=== PATIENT | male | born 1950 | race Caucasian/White ===

== ENCOUNTER → 2020-07-25 07:48 | Outpatient (BNVA) | payer OTHER, SELFPAY | PROVIDERS: Visit Provider Internal Medicine Endocrinology, Diabetes & Metabolism | DX: Z76.89 Persons encountering health services in other specified circumstances (principal) ==

== ENCOUNTER 2020-08-09 08:21 | Outpatient (REF) | payer OTHER, SELFPAY ==
[2020-08-09 09:50] LABS: MANUAL DIFF FLAG NO
[2020-08-09 10:17] LABS: Basophils Percent Auto 0.5 % (0-2); Eosinophils Absolute Auto 0.1 X10*3/uL (0.0-0.4); Eosinophils Percent Auto 2.3 % (0-4); Hemoglobin 13.5 g/dl (14.0-18.0); Imm Gran Abs Auto 0.01 X10*3/uL (0.00-0.03); Imm Gran Pct Auto 0.2 % (0.0-0.4); Lymphocytes Absolute Auto 1.5 X10*3/uL (1.2-4.9); Mean Corpuscular HGB Conc 32.1 g/dl (31.0-36.0); Mean Corpuscular Hemoglobin 26.4 pg (27.0-33.0); Mean Corpuscular Volume 82.2 fL (80-98); Mean Platelet Volume 11.3 fL (9.4-12.4); Monocytes Absolute Auto 0.6 X10*3/uL (0.1-1.2); Monocytes Percent Auto 9.6 % (2-11); Neutrophils Percent Auto 63.4 % (45-73); Platelet Count 267 X10*3/uL (160-400); Red Blood Count 5.11 X10*6/uL (4.60-5.80); Red Cell Distribution Width 12.5 % (11.0-16.0); White Blood Count 6.2 X10*3/uL (4.8-10.8)
[2020-08-09 10:21] LABS: Estimated Average Glucose 154 mg/dL
[2020-08-09 10:26] LABS: Glucose Urine UA NEG (NEG); Leukocyte Esterase Urine NEG (NEG); Nitrite Urine NEG (NEG); PH 6.5 (5.0-8.0); Specific Gravity - Urine 1.015 (1.005-1.025); Urine Blood NEG (NEG); Urine Ketones NEG (NEG); Urine Protein NEG (NEG-TRACE)
[2020-08-09 10:45] LABS: Alanine Aminotransferase 38 U/L (0-40); Albumin Level 4.4 g/dL (3.5-5.0); Alkaline Phosphatase 71 U/L (39-117); Anion Gap 13 (12-20); Aspartate Amino Transferase 23 U/L (5-37); Bilirubin Total 0.5 mg/dL (0.0-1.0); Blood Urea Nitrogen 12 mg/dL (9-16); Carbon Dioxide 29 mmol/L (22-29); Chloride 101 mmol/L (96-108); Cholesterol 149 mg/dL; Estimated Glomerular Filt Rate > 60; Glucose Fasting 147 mg/dL (60-99); HDL Cholesterol 36 mg/dL; LDL Cholesterol Calculated 76 mg/dl; Potassium 4.9 mmol/l (3.3-5.1); Sodium 138 mmol/L (135-145); Total Protein 7.2 g/dL (6.5-8.0); Triglycerides 186 mg/dL
[2020-08-09 10:50] LABS: Appearance Urine CLEAR; Color Urine YELLOW
[2020-08-09 10:57] LABS: RBC Urine 0 /HPF (0); Squamous Epithelial Cell Urine TRACE /LPF; WBC Urine 0 /HPF (0-4)
[2020-08-09 11:07] LABS: Creatinine Urine 190.25 mg/dL; Microalbum/Creatinine Ratio Ur 12.6 ug/mg cr
[2020-08-09 11:09] LABS: Free T4 (Free Thyroxine) 1.09 ng/dL (0.71-1.85); Thyroid Stimulating Hormone 0.98 mIU/mL (0.32-4.0); Vitamin D 25-OH Total 28.3 ng/mL (>30)
[2020-08-09 11:15] LABS: Vitamin B12 325 pg/mL (200-900)
[2020-08-10 09:22] LABS: LDL Cholesterol Direct 86 mg/dL (<100)
[2020-08-10 19:01] LABS: Calcium (PTHI) 9.4 mg/dL (8.6-10.3); PTHI 28 pg/mL (14-64)
== END 2020-08-09 08:22 | disposition home or self-care (01) ==
LOC: HO.LAB 08:21
PROVIDERS: Visit Provider Internal Medicine Endocrinology, Diabetes & Metabolism
DX: E11.9 Type 2 diabetes mellitus without complications (principal); Z86.39 Personal history of other endocrine, nutritional and metabolic disease; E55.9 Vitamin D deficiency, unspecified
CPT/HCPCS: 36415; 80053; 80061; 81001; 82043; 82306; 82607; 83036; 83721; 83970; 84439; 84443; 85025

== ENCOUNTER 2020-12-31 14:17 | Outpatient (REF) | payer OTHER, SELFPAY ==
--- NOTE | ~2020-12-31 | XR_ITS ---
EXAMINATION: XR SHOULDER, RIGHT CLINICAL INFORMATION: Pain COMPARISON: Previous x-ray May 2014 TECHNIQUE: AP external rotation, Grashey, scapular Y, and axillary views of the right shoulder. FINDINGS: Bone alignment is normal. No fracture or dislocation is seen. The glenohumeral joint is normal. There is a arthritis at the acromioclavicular joint with joint space narrowing, osteophyte formation. Articular soft tissue ossifications. There is a periarticular ossification versus undersurface acromial osteophyte adjacent adjacent to the acromion. Soft tissues are otherwise unremarkable. XR/XR shoulder RT min 2V IMPRESSION: Arthritis at the acromioclavicular joint and periarticular soft tissue ossifications. Findings are similar to 2014 exam.
== END 2020-12-31 14:18 | disposition home or self-care (01) ==
LOC: HO.XRAY 14:17
PROVIDERS: PCP Internal Medicine; Visit Provider Internal Medicine
DX: M25.511 Pain in right shoulder (principal)
CPT/HCPCS: 73030

== ENCOUNTER → 2021-01-14 09:26 | Outpatient (BNVA) | payer OTHER, SELFPAY | PROVIDERS: PCP Internal Medicine; Visit Provider Orthopaedic Surgery | DX: M75.101 Unspecified rotator cuff tear or rupture of right shoulder, not specified as traumatic (principal) | CPT/HCPCS: 20610; J1100 ==

== ENCOUNTER 2021-02-20 16:00 | Outpatient (RCR) | payer OTHER, SELFPAY ==
--- NOTE | 2021-01-30 16:59 | MHC.PT.EP ---
[facility] [place] Office [place] Office [place] Office [address] Ingrid Johnson [address] [phone] F: [phone] F: [phone] F: [phone] F: [phone] Physical Therapy Plan of Care Date of Evaluation: Date of Surgery: Diagnosis: Unspecified RCT or rupture of R shoulder, nontraumatic Assessment: 70 y/o male referred to PT with R RTC tear rupture. S/s consistent with impingement and AC joint dysfunction resulting in pain and difficulty with reaching overhead, flipping his shirt collar, reaching behind his back, and sleeping. He enjoys swimming, biking, weight-lifting and would like to reach overhead again without pain. Examination shows decreased R shoulder A/PROM, limited cervical AROM but did not reproduce sx, decreased scapular and RTC strength, decreased pec/lat tissue mobility, and impaired postural awareness. Recommend PT 2x/week for 5 weeks to address impairments, implement HEP, and optimize functional mobility. Frequency and Duration: The patient will be seen 2x/week for 5 weeks Short Term Goals: 3 weeks 1. I with HEP 2. Improve R shoulder AROM by 10 degrees Usp Goals: 5 weeks 1. I with HEP and self management of sx 2. Pt will be able to flip down his shirt collar with R UE and pain < 3/10 3. Pt will be able to reach into overhead cabinet without shrug and pain < 3/10 Treatment Plan: Modalities to reduce pain, spasms and effusion. Manual therapy to restore motion and function. Therapeutic exercise to improve strength and flexibility. Neuromuscular re-education for posture and balance. Therapeutic activities to return to functional activities of daily living. Electronically signed by: Reema Huitron PT Please sign and return to therapist. Thank you for your referral.
--- NOTE | 2021-03-06 15:41 | MHC.PT.DC ---
[facility] [place] Office [place] Office [place] Office [address] Ingrid Johnson [address] [phone] F: [phone] F: [phone] F: [phone] F: [phone] Physical Therapy Discharge Report Diagnosis: Unspecified RCT or rupture of R shoulder, nontraumatic Date of Surgery: Date of Evaluation: 01/30/21 Date of Discharge: 03/06/21 Treatments to Date: 3 Cancellations to Date: 0 No Shows to Date: 0 Discharge Status: Improved Function Independent with HEP Patient Elected to Stop Discharge Summary: Pt called to self discharge stating he has been feeling better and I with HEP. Electronically signed by: Reema Huitron PT Please sign and return to therapist. Thank you for your referral.
== END 2021-03-06 15:41 | disposition home or self-care (01) ==
LOC: HO.PT 16:00
PROVIDERS: PCP Internal Medicine; Visit Provider Orthopaedic Surgery
DX: M75.101 Unspecified rotator cuff tear or rupture of right shoulder, not specified as traumatic (principal)
CPT/HCPCS: 97110; 97161

== ENCOUNTER 2021-03-20 12:55 | Outpatient (REF) | payer OTHER, SELFPAY ==
[2021-03-20 14:19] LABS: MANUAL DIFF FLAG NO
[2021-03-20 14:28] LABS: Basophils Percent Auto 0.6 % (0-2); Eosinophils Absolute Auto 0.1 X10*3/uL (0.0-0.4); Eosinophils Percent Auto 1.8 % (0-4); Hematocrit 42.4 % (42-52); Hemoglobin 13.8 g/dl (14.0-18.0); Imm Gran Abs Auto 0.02 X10*3/uL (0.00-0.03); Imm Gran Pct Auto 0.3 % (0.0-0.4); Immature Retic Fraction 8.9 % (2.3-13.4); Lymphocytes Absolute Auto 1.8 X10*3/uL (1.2-4.9); Mean Corpuscular HGB Conc 32.5 g/dl (31.0-36.0); Mean Corpuscular Hemoglobin 26.5 pg (27.0-33.0); Mean Corpuscular Volume 81.5 fL (80-98); Mean Platelet Volume 11.3 fL (9.4-12.4); Monocytes Absolute Auto 0.7 X10*3/uL (0.1-1.2); Monocytes Percent Auto 9.6 % (2-11); Neutrophils Absolute Auto 4.2 X10*3/uL (2.0-8.3); Neutrophils Percent Auto 61.7 % (45-73); Platelet Count 287 X10*3/uL (160-400); Red Cell Distribution Width 12.7 % (11.0-16.0); Retic HGB Equivalent 30.2 pg (30.0-35.0); Reticulocyte Percent 1.4 % (0.5-1.8); Reticulocytes Absolute 0.071 X10*6/uL (0.026-0.095); White Blood Count 6.8 X10*3/uL (4.8-10.8)
[2021-03-20 14:44] LABS: Alanine Aminotransferase 35 U/L (0-40); Albumin Level 4.8 g/dL (3.5-5.0); Alkaline Phosphatase 69 U/L (39-117); Anion Gap 12 (12-20); Aspartate Amino Transferase 21 U/L (5-37); Bilirubin Total 0.3 mg/dL (0.0-1.0); Blood Urea Nitrogen 12 mg/dL (9-16); Calcium 9.8 mg/dL (8.4-10.2); Carbon Dioxide 29 mmol/L (22-29); Chloride 102 mmol/L (96-108); Cholesterol 166 mg/dL; Estimated Glomerular Filt Rate > 60; Glucose Random 130 mg/dL (60-115); HDL Cholesterol 38 mg/dL; Iron 94 mcg/dL (45-160); LDL Cholesterol Calculated 78 mg/dl; Percent Iron Saturation 23 % (15-50); Sodium 138 mmol/L (135-145); Total Iron Binding Capacity 409 mcg/dL (228-428); Total Protein 7.5 g/dL (6.5-8.0); Triglycerides 250 mg/dL; Unsaturated Iron Binding 315 ug/dL
[2021-03-20 15:06] LABS: Creatinine Urine 185.48 mg/dL; Ferritin 31 ng/mL (20-250); Free T4 (Free Thyroxine) 0.96 ng/dL (0.71-1.85); Microalbum/Creatinine Ratio Ur 14.5 ug/mg cr; Thyroid Stimulating Hormone 0.72 uIU/mL (0.32-4.0); Vitamin D 25-OH Total 38.5 ng/mL (>30)
[2021-03-20 15:21] LABS: Folate 14.1 ng/mL (> or = 4.0); Vitamin B12 221 pg/mL (200-900)
[2021-03-21 06:31] LABS: LDL Cholesterol Direct 99 mg/dL (<100)
[2021-03-21 17:31] LABS: Calcium (PTHI) 10.2 mg/dL (8.6-10.3); PTHI 27 pg/mL (14-64)
== END 2021-03-20 12:56 | disposition home or self-care (01) ==
LOC: HO.LAB 12:55
PROVIDERS: PCP Internal Medicine; Visit Provider Internal Medicine Endocrinology, Diabetes & Metabolism
DX: E11.40 Type 2 diabetes mellitus with diabetic neuropathy, unspecified (principal); E03.9 Hypothyroidism, unspecified; E78.00 Pure hypercholesterolemia, unspecified; E78.5 Hyperlipidemia, unspecified; E55.9 Vitamin D deficiency, unspecified; I10 Essential (primary) hypertension; Z86.39 Personal history of other endocrine, nutritional and metabolic disease; Z79.84 Long term (current) use of oral hypoglycemic drugs; Z79.899 Other long term (current) drug therapy
CPT/HCPCS: 36415; 80053; 80061; 82043; 82306; 82607; 82728; 82746; 82947; 83540; 83721; 83970; 84439; 84443; 85025; 85045

== ENCOUNTER 2021-05-13 09:40 | Outpatient (REF) | payer OTHER, SELFPAY ==
[2021-05-13 10:43] LABS: Alanine Aminotransferase 25 U/L (0-40); Albumin Level 4.5 g/dL (3.5-5.0); Alkaline Phosphatase 72 U/L (39-117); Anion Gap 13 (12-20); Aspartate Amino Transferase 15 U/L (5-37); Bilirubin Total 0.5 mg/dL (0.0-1.0); Blood Urea Nitrogen 14 mg/dL (9-16); Calcium 9.6 mg/dL (8.4-10.2); Carbon Dioxide 28 mmol/L (22-29); Chloride 105 mmol/L (96-108); Cholesterol 160 mg/dL; Estimated Glomerular Filt Rate > 60; Glucose Random 169 mg/dL (60-115); HDL Cholesterol 33 mg/dL; LDL Cholesterol Calculated 97 mg/dl; Potassium 4.6 mmol/L (3.3-5.1); Sodium 141 mmol/L (135-145); Total Protein 7.4 g/dL (6.5-8.0); Triglycerides 151 mg/dL
[2021-05-13 10:57] LABS: Free T4 (Free Thyroxine) 1.05 ng/dL (0.71-1.85); Thyroid Stimulating Hormone 0.96 uIU/mL (0.32-4.0)
[2021-05-13 11:08] LABS: Vitamin B12 1405 pg/mL (200-900)
[2021-05-17 11:41] LABS: Testosterone, Total 280 ng/dL (250-1100)
== END 2021-05-13 09:41 | disposition home or self-care (01) ==
LOC: HO.LAB 09:40
PROVIDERS: Internal Medicine Endocrinology, Diabetes & Metabolism; PCP Internal Medicine; Visit Provider Internal Medicine
DX: E11.65 Type 2 diabetes mellitus with hyperglycemia (principal); E55.9 Vitamin D deficiency, unspecified; Z86.39 Personal history of other endocrine, nutritional and metabolic disease
CPT/HCPCS: 36415; 80053; 80061; 82607; 84403; 84439; 84443

== ENCOUNTER 2021-05-27 09:49 | Outpatient (REF) | payer OTHER, SELFPAY ==
[2021-05-27 11:05] LABS: Glucose Urine UA NEG (NEG); Leukocyte Esterase Urine NEG (NEG); Nitrite Urine NEG (NEG); Urine Blood NEG (NEG); Urine Ketones NEG (NEG); Urine Protein NEG (NEG-TRACE)
[2021-05-27 11:13] LABS: Appearance Urine CLEAR; Color Urine YELLOW
[2021-05-27 11:28] LABS: RBC Urine 0-2 /HPF (0); Squamous Epithelial Cell Urine TRACE /LPF; WBC Urine 0 /HPF (0-4)
== END 2021-05-27 09:50 | disposition home or self-care (01) ==
LOC: HO.LAB 09:49
PROVIDERS: PCP Internal Medicine; Visit Provider Internal Medicine
DX: R35.0 Frequency of micturition (principal)
CPT/HCPCS: 81001

== ENCOUNTER 2021-06-06 14:52 | Outpatient (REF) | payer OTHER, SELFPAY ==
--- NOTE | ~2021-06-06 | US_ITS ---
EXAMINATION: US PELVIS LIMITED (BLADDER) CLINICAL INFORMATION: Frequency of micturition. COMPARISON: CT abdomen without intravenous contrast dated 09/26/2008. TECHNIQUE: Real-time imaging of the bladder. FINDINGS: BLADDER: The bladder wall is slightly thickened and trabeculated. No stone or mass is seen. Bilateral ureteral jets are demonstrated. Prevoid bladder volume is 172.0 mL. Postvoid bladder volume is 28.4 mL. The prostate gland is enlarged and protrudes into the base of the bladder. Prostate gland measures 4.9 x 4.2 x 4.8 cm. Prostate volume is 53.5 mL. US/US bladder IMPRESSION: Slightly thickened trabeculated bladder wall. Enlarged prostate gland that protrudes into the base of the bladder. No significant postvoid bladder residual..
== END 2021-06-06 14:53 | disposition home or self-care (01) ==
LOC: HO.US 14:52
PROVIDERS: PCP Internal Medicine; Visit Provider Internal Medicine
DX: R35.0 Frequency of micturition (principal)
CPT/HCPCS: 76857

== ENCOUNTER 2021-09-18 06:54 | Day surgery (SDC) | payer OTHER, SELFPAY ==
[2021-09-12 11:05] VITALS: BMI 31.7
--- NOTE | 2021-09-17 11:49 | P.CONAN_ITS ---
Documented by User: Katerine Logan NP 09/17/21 11:56 HPI - Anesthesia Eval Consult details Narrative: 71yo M for Upper Endoscopy and Colonoscopy [facility] Active Problems Active Problems: All Active Problems (Updated 09/12/21 @ 10:45 by Sanjuana Ray, RN) Impacted cerumen of both ears (Acute) Diabetic neuropathy (Acute) Right shoulder pain (Acute) Tinnitus (Acute) Type 2 diabetes mellitus with hyperglycemia (Acute) Vitamin B 12 deficiency (Acute) Colon cancer screening (Acute) Frequency of micturition (Acute) Obstructive sleep apnea (Acute) Painful arc syndrome of right shoulder (Acute) Obesity (BMI 30-39.9) (Acute) Anxiety (Acute) GERD (gastroesophageal reflux disease) (Acute) Hypothyroidism (Acute) Vitamin D deficiency (Acute) Diabetic neuropathy associated with type 2 diabetes mellitus (Acute) Hypertension (Acute) Dyslipidemia (Acute) History of hyperparathyroidism (Acute) Diabetes type 2, controlled (Acute) Past Medical History Medical History (Updated 09/12/21 @ 10:45 by Sanjuana Ray RN) Anxiety Burn Diabetes type 2, controlled Diabetic neuropathy associated with type 2 diabetes mellitus Dyslipidemia GERD (gastroesophageal reflux disease) History of hyperparathyroidism Hypertension Hypothyroidism Obesity (BMI 30-39.9) Painful arc syndrome of right shoulder Vitamin D deficiency Family History Family History Father No problems noted. Mother Diabetes Surgical History Surgical History (Updated 09/12/21 @ 11:12 by Sanjuana Ray RN) History of ankle surgery History of parathyroidectomy Hx of colonoscopy Hx of skin graft Hx of umbilical hernia repair Social History Social History (Updated 03/20/21 @ 13:08 by Rose Marie Knight LPN) Housing: House Are you a primary animal daycare provider to a significant other at home: No Do you presently have visiting nurse or other home services: No Alcohol intake: never Patient Tobacco Use Status: Never used Tobacco Second Hand Smoke Exposure: No Have you been hit, kicked, punched, or otherwise hurt by someone within the past year? If so, by whom?: No Are you DNR?: No Advance Directives: No Advance Directives Information Provided: Yes Advance Directives on File: No Recently lost weight without trying: No service: Yes Current occupational status: retired Meds Allergies Allergy/AdvReac Type Severity Reaction Status Date / Time latex Allergy skin Verified 09/12/21 11:04 irritation, from CPAP mask Home Medications Medication Instructions Recorded Confirmed Last Taken Type alpha lipoic acid 600 mg tablet 600 mg PO DAILY 07/25/20 09/12/21 Unknown History ibuprofen 200 mg tablet (Advil) 200 mg PO Q6H PRN 12/31/20 09/12/21 Unknown History Exam Exam Date and Time: September 17, 2021 1149 Height,Weight and Vital Signs: Height 6 ft Weight 106.141 kg Pertinent Lab Results Pertinent Lab Results: Laboratory Tests 03/20/21 05/13/21 13:45 09:45 WBC 6.8 Hgb 13.8 L Hct 42.4 Plt Count 287 Sodium 141 Potassium 4.6 Chloride 105 Carbon Dioxide 28 BUN 14 Creatinine 0.96 Assessment and Plan Assessment Anesthesia Assessment: Chart Reviewed Documented by User: Zana Max 09/18/21 07:36 PMFSH Past Medical History Medical History (Updated 09/12/21 @ 10:45 by Sanjuana Ray RN) Anxiety Burn Diabetes type 2, controlled Diabetic neuropathy associated with type 2 diabetes mellitus Dyslipidemia GERD (gastroesophageal reflux disease) History of hyperparathyroidism Hypertension Hypothyroidism Obesity (BMI 30-39.9) Painful arc syndrome of right shoulder Vitamin D deficiency Family History Family History Father No problems noted. Mother Diabetes Family history of problems with anesthesia: No Surgical History Surgical History (Updated 09/12/21 @ 11:12 by Sanjuana Ray RN) History of ankle surgery History of parathyroidectomy Hx of colonoscopy Hx of skin graft Hx of umbilical hernia repair History of Problems with Anesthesia: No Social History Social History (Updated 03/20/21 @ 13:08 by Rose Marie Knight LPN) Housing: House Are you a primary animal daycare provider to a significant other at home: No Do you presently have visiting nurse or other home services: No Alcohol intake: never Patient Tobacco Use Status: Never used Tobacco Second Hand Smoke Exposure: No Have you been hit, kicked, punched, or otherwise hurt by someone within the past year? If so, by whom?: No Are you DNR?: No Advance Directives: No Advance Directives Information Provided: Yes Advance Directives on File: No Recently lost weight without trying: No service: Yes Current occupational status: retired Meds Allergies Allergy/AdvReac Type Severity Reaction Status Date / Time latex Allergy skin Verified 09/12/21 11:04 irritation, from CPAP mask Home Medications Medication Instructions Recorded Confirmed Last Taken Type alpha lipoic acid 600 mg tablet 600 mg PO DAILY 07/25/20 09/12/21 Unknown History ibuprofen 200 mg tablet (Advil) 200 mg PO Q6H PRN 12/31/20 09/12/21 Unknown History Exam Airway Mallampati Class: III TM Dist: >3cm Neck ROM: Full Denture: Upper and Lower Loose/Missing/Broken Teeth: Yes Heart: rrr Lungs: bl breath sounds Assessment and Plan Final Anesthetic Review Family History of Problems with Anesthesia: No History of Problems with Anesthesia: No NPO: Yes ASA Class: II Final Preanesthetic Review: Meds/Allgs Chart Reviewed and Anes Risks/Benef Reviewed Patient Risk: Intermediate Procedure Risk: Intermediate Anesthetic Plan Anesthetic Plan: MAC: Disposition: Standard PACU
[2021-09-18 07:02] VITALS: BP 135/74; PULSE 72; RESP 18; TEMP 36.1; O2SAT 98
[2021-09-18 07:20] LABS: Glucose, Whole Blood 145 mg/dL (60-115)
[2021-09-18] MEDS: Lactated Ringers 1,000 ML 100 ML IVCONT (07:27)
[2021-09-18 09:28] VITALS: BP 119/76; PULSE 66; RESP 16; TEMP 36.3; O2SAT 97
--- NOTE | 2021-09-18 09:30 | P.BOP_ITS ---
Brief Operative Note Date of Service: 09/18/21 Post-op diagnosis: other (Hiatal hernia, Colon polyp) Procedure: EGD with biopsies, Colonoscopy to the cecum with hot snare polypectomy Surgeon: Edison Gillis Anesthesia: MAC Was an Cyber Threat Analyst used for this Procedure?: No Estimated blood loss (mL): 2.0 Pathology: other (A. EG Junction at 39cm B. Ascending colon polyp) Condition: stable Disposition: PACU
[2021-09-18 09:43] VITALS: BP 122/73; PULSE 66; RESP 16; TEMP 36.3; O2SAT 97
--- NOTE | 2021-09-18 09:53 | OP_ITS ---
SURGEON: Edison Gillis MD INDICATIONS: The patient presents for evaluation of gastroesophageal reflux, personal history of tubular adenoma of the colon, and colorectal cancer screening. Full consent obtained from him for this, including risks of bleeding and perforation. PREOPERATIVE DIAGNOSIS: POSTOPERATIVE DIAGNOSIS: PROCEDURE PERFORMED: Esophagogastroduodenoscopy with biopsies, and colonoscopy to cecum with snare polypectomy. ESTIMATED BLOOD LOSS: COMPLICATIONS: ANESTHESIA: Medication used, monitored anesthesia care. ASSISTANTS: SPECIMENS: PREOPERATIVE DIAGNOSES: Gastroesophageal reflux, personal history of tubular adenoma of the colon, colorectal cancer screening. POSTOPERATIVE DIAGNOSES: Gastroesophageal reflux, personal history of tubular adenoma of the colon, colorectal cancer screening, small hiatal hernia, colon polyp, diverticulosis, and internal hemorrhoids. DESCRIPTION OF PROCEDURE: The patient was placed in the left lateral decubitus position. The Olympus video gastroscope was passed into the posterior oropharynx and upper esophagus under direct vision. The scope was passed slowly into the distal esophagus. The gastroesophageal junction appeared at 39 cm. There was a very slight irregularity consistent with reflux. There was no evidence of any esophagitis nor any definitive [place]'s mucosa. There was a small hiatal hernia. The scope was advanced to pylorus and duodenum was cannulated to the descending portion. The duodenum including the bulb appeared normal without mass or ulceration. The scope was withdrawn back to the stomach. The gastric antrum and body appeared normal with good peristalsis. Scope was retroflexed visualizing the proximal stomach carefully, which appeared normal, without any sign of mass or ulceration. The scope was straightened and withdrawn back into the esophagus. Biopsies were obtained at the EG junction at 39 cm. Proximal to that the esophageal mucosa appeared normal. The scope was withdrawn from the patient. He was turned around for the colonoscopy. The digital rectal exam revealed no abnormalities. The Olympus video pediatric colonoscope was entered into the rectum and advanced to the cecum with the assistance of abdominal wall pressure. Once in the cecum, I did identify normal-appearing cecal pouch with appendiceal orifice and a normal-appearing ileocecal valve. The entire cecum and ileocecal valve appeared normal. There was transillumination of light deep in the right lower quadrant. The scope was slowly withdrawn assessing all mucosal surfaces carefully. Preparation was excellent. In the ascending colon, was an approximately 10 to 12 mm relatively flat polypoid area on a fold, which was snared and recovered by suction. The polypectomy site appeared clean, without any sign of residual polyp nor bleeding. I did not visualize any other polyps, colitis, or angiodysplasia. There was a moderate amount of sigmoid diverticulosis. In the rectum, scope was retroflexed visualizing internal hemorrhoids, but no other pathology. The rectal mucosa appeared normal. The scope was straightened and withdrawn from the patient. He tolerated both procedures well, and was returned to the recovery area in stable condition. IMPRESSION: 1. Colon polyp, status post snare polypectomy. 2. Diverticulosis. 3. Internal hemorrhoids. 4. Hiatal hernia, gastroesophageal reflux. PLAN: The results of the biopsies will be checked. If the polyp is a tubular adenoma, I would recommend a followup colonoscopy in 3 years. If it is a serrated polyp, I would recommend a repeat colonoscopy in 1 year. If it is only hyperplastic tissue, I would recommend a repeat colonoscopy in 10 years. He was advised to continue his pantoprazole for relief of his reflux. He was advised not to use any aspirin and NSAIDs for 1 week. MD LEONID Gleason/ALIRIO / [id number]
== END 2021-09-18 10:14 | disposition home or self-care (01) ==
PROVIDERS: PCP Internal Medicine; Visit Provider Internal Medicine
PROC: (CPT 45385; principal; 2021-09-18 08:10)
DX: Z12.11 Encounter for screening for malignant neoplasm of colon (principal); Z86.010 Personal history of colon polyps; D12.2 Benign neoplasm of ascending colon; K57.30 Diverticulosis of large intestine without perforation or abscess without bleeding; K64.8 Other hemorrhoids; K21.9 Gastro-esophageal reflux disease without esophagitis; K44.9 Diaphragmatic hernia without obstruction or gangrene; I10 Essential (primary) hypertension; E11.40 Type 2 diabetes mellitus with diabetic neuropathy, unspecified; Z79.84 Long term (current) use of oral hypoglycemic drugs; Z79.899 Other long term (current) drug therapy
CPT/HCPCS: 45385; 43239; 82947; 88305

== ENCOUNTER 2022-04-15 06:04 | Outpatient (REF) | payer OTHER, SELFPAY ==
--- NOTE | ~2022-04-15 | XR_ITS ---
EXAMINATION: XR KNEE, LEFT CLINICAL INFORMATION: Bursitis of the knee. COMPARISON: None TECHNIQUE: Two views of the left knee. FINDINGS: There is loss of tricompartment joint space with mild superior inferior patellar spurring. No visible acute fracture or dislocation seen. There are mild enthesophytes along the lateral intercondylar eminence. No suprapatellar joint effusion seen. XR/XR knee LT 2V IMPRESSION: Mild degenerative spurring along the superior and inferior patella and medial intercondylar eminence. No acute fracture or dislocation seen.
[2022-04-15 06:14] LABS: MANUAL DIFF FLAG NO
[2022-04-15 07:52] LABS: Basophils Percent Auto 0.6 % (0-2); Eosinophils Absolute Auto 0.2 X10*3/uL (0.0-0.4); Eosinophils Percent Auto 2.7 % (0-4); Imm Gran Abs Auto 0.03 X10*3/uL (0.00-0.03); Imm Gran Pct Auto 0.5 % (0.0-0.4); Lymphocytes Absolute Auto 1.8 X10*3/uL (1.2-4.9); Lymphocytes Percent Auto 26.3 % (20-40); Mean Corpuscular HGB Conc 32.5 g/dl (31.0-36.0); Mean Corpuscular Hemoglobin 26.9 pg (27.0-33.0); Mean Corpuscular Volume 82.6 fL (80.0-98.0); Mean Platelet Volume 11.4 fL (9.4-12.4); Monocytes Absolute Auto 0.6 X10*3/uL (0.1-1.2); Monocytes Percent Auto 9.6 % (2-11); Neutrophils Percent Auto 60.3 % (45-73); Platelet Count 253 X10*3/uL (160-400); Red Blood Count 4.84 X10*6/uL (4.60-5.80); White Blood Count 6.7 X10*3/uL (4.8-10.8)
[2022-04-15 08:01] LABS: Estimated Average Glucose 143 mg/dL; Hemoglobin A1c % 6.6 %
[2022-04-15 08:18] LABS: Alanine Aminotransferase 37 U/L (0-40); Albumin Level 4.6 g/dL (3.5-5.0); Alkaline Phosphatase 62 U/L (39-117); Anion Gap 13 (12-20); Aspartate Amino Transferase 22 U/L (5-37); Bilirubin Total 0.4 mg/dL (0.0-1.0); Blood Urea Nitrogen 15 mg/dL (9-16); Calcium 9.5 mg/dL (8.4-10.2); Carbon Dioxide 28 mmol/L (22-29); Chloride 103 mmol/L (96-108); Cholesterol 144 mg/dL; Estimated Glomerular Filt Rate > 60; Glucose Random 132 mg/dL (60-115); HDL Cholesterol 36 mg/dL; LDL Cholesterol Calculated 63 mg/dl; Potassium 4.8 mmol/L (3.3-5.1); Sodium 139 mmol/L (135-145); Total Protein 7.2 g/dL (6.5-8.0); Triglycerides 225 mg/dL
[2022-04-15 08:40] LABS: Thyroid Stimulating Hormone 2.78 uIU/mL (0.32-4.0)
[2022-04-15 09:48] LABS: Folate 18.1 ng/mL (> or = 4.0); Vitamin B12 > 2000 pg/mL (200-900)
[2022-04-15 10:05] LABS: Creatinine Urine 111.66 mg/dL; Microalbum/Creatinine Ratio Ur 10.7 ug/mg cr
== END 2022-04-15 06:05 | disposition home or self-care (01) ==
LOC: HO.XRAY 06:04
PROVIDERS: PCP Internal Medicine; Visit Provider Internal Medicine
DX: E78.00 Pure hypercholesterolemia, unspecified (principal); M70.50 Other bursitis of knee, unspecified knee; E11.65 Type 2 diabetes mellitus with hyperglycemia
CPT/HCPCS: 36415; 73560; 80053; 80061; 82043; 82607; 82746; 83036; 84443; 85025

== ENCOUNTER → 2022-05-29 15:36 | Outpatient (BNVA) | payer OTHER, SELFPAY | PROVIDERS: PCP Internal Medicine; Visit Provider Orthopaedic Surgery | DX: M23.92 Unspecified internal derangement of left knee (principal) | CPT/HCPCS: 20610; J1100 ==

== ENCOUNTER 2022-06-03 14:59 | Outpatient (REF) | payer OTHER, SELFPAY ==
--- NOTE | ~2022-06-03 | MR_ITS ---
EXAMINATION: MR KNEE WITHOUT CONTRAST, LEFT CLINICAL INFORMATION: Unspecified internal derangement of the left knee. COMPARISON: X-rays of the left knee April 2022 TECHNIQUE: MRI of the knee without contrast was performed using routine sequences on a high-field scanner. FINDINGS: MENISCI: Medial Meniscus: There is a vertical focus of increased signal in the central aspect of the posterior horn extending to the femoral and tibial articular surface indicative of meniscal tear. There is also oblique increased signal along the periphery of the posterior horn which appears to contact the tibial articular surface. Findings indicative of meniscal tear. Lateral Meniscus: Intact LIGAMENTS: Cruciate: Intact Collateral: Intact EXTENSOR MECHANISM: Intact ARTICULAR CARTILAGE/BONE: Patellofemoral Compartment: There is mild cartilage thinning of the medial facet of the patella. There are small marginal osteophytes. There is nonuniform up to high-grade cartilage loss in the central trochlea. Overall findings indicative of [id number] osteoarthritis. Medial Compartment: There are marginal osteophytes most prominent along the posterior lateral aspect of the tibial articular surface with associated subchondral cystic change. Minimal cartilage heterogeneity and surface irregularity of the weightbearing femoral articular cartilage. Overall mild arthrosis. Lateral Compartment: There is focal nonuniform up to high-grade cartilage loss involving the posterior weightbearing/non-weightbearing portion of the femoral articular surface extending over 2 cm AP and 5 mm transverse. The tibial articular surface is normal. Small marginal osteophytes. Overall [id number] arthrosis. JOINT FLUID AND BURSAE: Trace effusion. Loose body versus nodular appearing synovitis in the posterior recess of the joint. This measures up to 12 mm. MR/MR knee LT wo con IMPRESSION: 1. Osteoarthritis. 2. Tear of the medial meniscus. 3. Loose body versus localized nodular synovitis in the posterior recess of the joint.
== END 2022-06-03 15:00 | disposition home or self-care (01) ==
LOC: HO.MRI 14:59
PROVIDERS: Visit Provider Orthopaedic Surgery
DX: M23.92 Unspecified internal derangement of left knee (principal)
CPT/HCPCS: 73721

== ENCOUNTER 2023-04-21 15:46 | Outpatient (AMB) | payer OTHER, SELFPAY ==
[2023-04-21 15:56] VITALS: BP 122/76; PULSE 77; O2SAT 98; BMI 29.4
--- NOTE | 2023-04-21 15:56 | A.OFFPC_ITS ---
Vital Signs 04/21/23 15:56 Height 6 ft Weight 217 lb BMI 29.4 BP 122/76 Blood Pressure Location Lt brachial Position Sitting Pulse 77 Pulse Source Pulse Oximeter Pulse Oximetry (%) 98 Oxygen Delivery Method Room Air Intake Visit Reasons: 6 MONTH FOLLOW UP ( Meds ) Allergies latex Allergy (Verified 04/21/23 15:56) skin irritation, from CPAP mask Medication List - Last Reconciled 04/21/23 by Adrian Ceja MD alpha lipoic acid 600 mg PO DAILY diazepam (Valium) 2 mg PO BEDTIME PRN 30 days dulaglutide (Trulicity) 1.5 mg (0.5 mL) subcut QWEEK 90 days etodolac 400 mg PO TID PRN 30 days gabapentin 300 mg PO BEDTIME 30 days lisinopril 20 mg PO DAILY 30 days metformin ER 1,000 mg (2 x 500 mg) PO BID pantoprazole (Protonix) 40 mg PO DAILY simvastatin 40 mg PO BEDTIME 90 days tamsulosin 0.4 mg PO BEDTIME Tobacco use date assessed: 04/21/23 Fall risk assessment: No Falls in past year Last assessed Fall Risk: 04/21/23 Dental Screening Dental Screen Date: 04/21/23 Did you have a dental visit in the last 12 months?: Yes Did you have a dental problem in the last 6 months where you did not have access to dental care?: No Was dental information given to patient?: Patient has dentist HPI 6 MONTH FOLLOW UP ( Meds ) HPI Details Funlgfg[age]zuc[age]aq-old obese male with multiple medical problems diabetes mellitus hypercholesterolemia hypertension GERD obstructive sleep apnea BPH last seen in July 2022 patient is here for follow-up colonoscopy is up-to-date noted weight loss PFSH Medical History (Updated 04/21/23 @ 16:23 by Adrian Ceja MD) Anserine bursitis Burn Diabetic neuropathy associated with type 2 diabetes mellitus Diastasis recti Eczema Frequency of micturition GERD (gastroesophageal reflux disease) Headache History of hyperparathyroidism Hypertension Hypothyroidism Impacted cerumen of both ears Internal derangement of left knee Localized osteoarthritis of left knee Obesity (BMI 30-39.9) Overweight (BMI 25.0-29.9) Painful arc syndrome of right shoulder Right shoulder pain Vitamin D deficiency Surgical History History of ankle surgery History of parathyroidectomy Hx of colonoscopy Hx of skin graft Hx of umbilical hernia repair Family History Father No problems noted. 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 1. Little interest or pleasure in doing things: not at all 2. Feeling down, depressed, or hopeless: not at all 3. Trouble falling or staying asleep, or sleeping too much: not at all 4. Feeling tired or having little energy: not at all 5. Poor appetite or overeating: not at all 6. Feeling bad about yourself - or that you are a failure or have let yourself or your family down: not at all 7. Trouble concentrating on things, such as reading the newspaper or watching television: not at all 8. Moving or speaking so slowly that other people could have noticed. Or the opposite - being so fidgety or restless that you have been moving around a lot more than usual: not at all 9. Thoughts that you would be better off or of hurting yourself in some way: not at all Total score: 0 Depression Screening Interpretation: Negative Source: Developed by Drs. Edison Scott, Radha Quach, Richard Renteria and colleagues, with an educational lidya from [employer]. Thrive Questionnaire Date Thrive assessed: 04/21/23 I am a: Patient What is your living situation today?: I have a steady place to live Within the past 12 months, did the food you bought not last and you didn't have the money to get more?: Never true Within the past 12 months, did you worry whether your food would run out before you got money to buy more?: Never true Do you have trouble paying for medicines?: No Do you have trouble getting transportation to medical appointments?: No Do you have trouble paying your heating and electricity bill?: No Do you have trouble taking care of your child, family member or friend?: No Do you have trouble with day-to-day activities such as bathing, preparing meals, shopping, managing finances, etc.?: No Are you currently unemployed and looking for a job?: No Are you interested in more education?: No Currently or been in a relationship where the following occur: no concerns reported AUDIT C Alcohol Use Questionnaire (AUDIT-C) 1. How often do you have a drink containing alcohol?: Monthly or less 2. How many drinks containing alcohol do you have on a typical day when you are drinking?: 1 or 2 3. How often do you have six or more drinks on one occasion?: Never Total Score: 1 KENDRICK-7 AMB Questionnaire KENDRICK-7 Date KENDRICK - 7 assessed: 04/21/23 Feeling nervous, anxious, or on edge: 0 = Not at all Not being able to stop or control worryin = Not at all Worrying too much about different things: 0 = Not at all Trouble relaxin = Not at all Being so restless that it is hard to sit still: 0 = Not at all Becoming easily annoyed or irritable: 0 = Not at all Feeling afraid as if something awful might happen: 0 = Not at all Total KENDRICK-7 score (0-4 normal; 5-9 mild; 10-14 moderate; 15-21 severe): 0 Source: Developed by Drs. Edison Scott, Radha Quach, Richard Renteria and colleagues, with an educational lidya from [employer]. Physical exam (Primary Care) Vital Signs: Last Vital Signs Pulse 77 04/21/23 15:56 BP 122/76 04/21/23 15:56 Pulse Ox 98 04/21/23 15:56 Oxygen Delivery Method Room Air 04/21/23 15:56 BMI result Body Mass Index 29.4 Tobacco/Smoking Status: Tobacco use Status Tobacco use date assessed 04/21/23 04/21/23 16:03 Patient Tobacco Use Status Never used Tobacco 04/21/23 16:03 e-Cigarette/Vaping Use Never Used 04/21/23 16:03 PHQ-9: PHQ-9 Score PHQ-9: Total score 0 04/21/23 16:03 Depression Screening Interpretation: Negative Thrive Assessment: Date of Thrive Assessment Date Thrive assessed 04/21/23 04/21/23 16:03 Currently or been in a relationship where the following occur: no concerns reported Const General: alert; No acute distress Eyes Conjunctivae: conjunctivae normal Resp Auscultation: clear to auscultation bilaterally Cardio Rate: regular rate Rhythm: regular rhythm GI Inspection: Yes normal to inspection Extrem General: Yes normal to inspection and No edema Assessment and Plan Assessment & Plan (1) Type 2 diabetes mellitus with hyperglycemia: Comment: Dr. Lloyd Code(s): E11.65 - Type 2 diabetes mellitus with hyperglycemia Qualifiers: Diabetes mellitus intermediate insulin use: without intermediate use Qualified Code(s): E11.65 - Type 2 diabetes mellitus with hyperglycemia Plan: Decrease the amount of carbohydrate intake, pasta, bread, rice and potatoes are all sugar and that is aside from all the sweet stuff, remember that fruits are good but they are Sweet also. Hemoglobin A1c goal of less than 7.0 (2) Obstructive sleep apnea: Code(s): G47.33 - Obstructive sleep apnea (adult) (pediatric) (3) GERD (gastroesophageal reflux disease): Code(s): K21.9 - Gastro-esophageal reflux disease without esophagitis Qualifiers: Esophagitis presence: without esophagitis Qualified Code(s): K21.9 - Gastro-esophageal reflux disease without esophagitis Plan: Avoid the foods that causes that usually spicy foods, tomato products, juices, coffee, soda and foods that your sensitive to. After eating do not lie down, allow 3-4 hours before in lie down. And keep the head of bed above 30 degrees to avoid the acid from going up. (4) Hypothyroidism: Code(s): E03.9 - Hypothyroidism, unspecified Qualifiers: Hypothyroidism type: acquired Qualified Code(s): E03.9 - Hypothyroidism, unspecified Plan: Continue with thyroid medication (5) Hypertension: Code(s): I10 - Essential (primary) hypertension Qualifiers: Hypertension type: essential hypertension Qualified Code(s): I10 - Essential (primary) hypertension Plan: Continue with blood pressure medication. Decrease salt intake and exercise (6) Overweight (BMI 25.0-29.9): Code(s): E66.3 - Overweight Plan: Continue with diet and exercise Orders: Orders Vitamin B12 and Folate Today E11.65 - Type 2 diabetes mellitus with hypergl ycemia Comprehensive Met. Panel Today E11.65 - Type 2 diabetes mellitus with hyperglycemia Lipid Panel Today E11.65 - Type 2 diabetes mellitus with hyperglycemia, E78.00 - Pure hypercholesterolemia, unspecified Prostate Specific Antigen Scr Today E11.65 - Type 2 diabetes mellitus with hyperglycemia Free T4 (Free Thyroxine) Today E11.65 - Type 2 diabetes mellitus with hyperglycemia Thyroid Stimulating Hormone Today E11.65 - Type 2 diabetes mellitus with hyperglycemia Creatinine Urine Today E11.65 - Type 2 diabetes mellitus with hyperglycemia Microalbumin, Random (w Creat) Today E11.65 - Type 2 diabetes mellitus with hyperglycemia Complete Blood Count Auto Diff Today E11.65 - Type 2 diabetes mellitus with hyperglycemia Hemoglobin A1c Today E11.65 - Type 2 diabetes mellitus with hyperglycemia US bladder Today N40.0 - Benign prostatic hyperplasia without lower urinary tract symptoms Medications: New lancets (FreeStyle Lancets) As directed check BS QD 100 ea 3RF E11.65 - Type 2 diabetes mellitus with hyperglycemia blood sugar diagnostic (FreeStyle Lite Strips) As directed check the BS QD 100 ea 3RF E11.65 - Type 2 diabetes mellitus with hyperglycemia blood-glucose meter (FreeStyle Lite Meter kit) As directed 1 ea 0RF E11.65 - Type 2 diabetes mellitus with hyperglycemia Coding Level of Care Code Est Pt Level 4 (87691) Diagnoses Type 2 diabetes mellitus with hyperglycemia E11.65 Diabetes mellitus intermediate insulin use: without exterminator termite use Obstructive sleep apnea G47.33 GERD (gastroesophageal reflux disease) K21.9 Esophagitis presence: without esophagitis Hypothyroidism E03.9 Hypothyroidism type: acquired Hypertension I10 Hypertension type: essential hypertension Overweight (BMI 25.0-29.9) E66.3
== END 2023-04-21 16:30 | disposition home or self-care (01) ==
PROVIDERS: PCP Internal Medicine; Visit Provider Internal Medicine
DX: E11.65 Type 2 diabetes mellitus with hyperglycemia (principal); K21.9 Gastro-esophageal reflux disease without esophagitis; E03.9 Hypothyroidism, unspecified; I10 Essential (primary) hypertension; G47.33 Obstructive sleep apnea (adult) (pediatric); E66.3 Overweight
CPT/HCPCS: 99214

== ENCOUNTER 2023-05-11 16:34 | Outpatient (REF) | payer OTHER, SELFPAY | END 2023-05-11 16:35 | disposition home or self-care (01) | LOC: HO.US 16:34 | PROVIDERS: PCP Internal Medicine; Visit Provider Internal Medicine | DX: Z13.89 Encounter for screening for other disorder (principal) ==

== ENCOUNTER 2023-05-12 06:40 | Outpatient (REF) | payer OTHER, SELFPAY ==
[2023-05-12 06:53] LABS: MANUAL DIFF FLAG NO
[2023-05-12 07:13] LABS: Basophils Percent Auto 0.7 % (0-2); Eosinophils Absolute Auto 0.1 X10*3/uL (0.0-0.4); Eosinophils Percent Auto 2.1 % (0-4); Hematocrit 41.6 % (42.0-52.0); Hemoglobin 13.4 g/dl (14.0-18.0); Imm Gran Abs Auto 0.02 X10*3/uL (0.00-0.03); Imm Gran Pct Auto 0.3 % (0.0-0.4); Lymphocytes Absolute Auto 1.8 X10*3/uL (1.2-4.9); Lymphocytes Percent Auto 28.6 % (20-40); Mean Corpuscular HGB Conc 32.2 g/dl (31.0-36.0); Mean Corpuscular Hemoglobin 26.4 pg (27.0-33.0); Mean Corpuscular Volume 82.1 fL (80.0-98.0); Mean Platelet Volume 10.8 fL (9.4-12.4); Monocytes Absolute Auto 0.6 X10*3/uL (0.1-1.2); Neutrophils Absolute Auto 3.6 x10*3/uL (2.0-8.3); Neutrophils Percent Auto 59.3 % (45-73); Platelet Count 238 X10*3/uL (160-400); Red Blood Count 5.07 X10*6/uL (4.60-5.80); Red Cell Distribution Width 12.3 % (11.0-16.0); White Blood Count 6.1 X10*3/uL (4.8-10.8)
[2023-05-12 07:24] LABS: Estimated Average Glucose 128 mg/dL; Hemoglobin A1c % 6.1 %
[2023-05-12 07:51] LABS: Alanine Aminotransferase 33 U/L (0-40); Albumin Level 4.4 g/dL (3.5-5.0); Alkaline Phosphatase 67 U/L (39-117); Anion Gap 12 (12-20); Aspartate Amino Transferase 21 U/L (5-37); Bilirubin Total 0.5 mg/dL (0.0-1.0); Blood Urea Nitrogen 14 mg/dL (9-16); Calcium 9.6 mg/dL (8.4-10.2); Carbon Dioxide 30 mmol/L (22-29); Chloride 104 mmol/L (96-108); Cholesterol 128 mg/dL; Estimated Glomerular Filt Rate > 60; Glucose Random 123 mg/dL (60-115); HDL Cholesterol 35 mg/dL; LDL Cholesterol Calculated 62 mg/dl; Potassium 5.1 mmol/L (3.3-5.1); Sodium 141 mmol/L (135-145); Total Protein 7.3 g/dL (6.5-8.0); Triglycerides 159 mg/dL
[2023-05-12 08:06] LABS: Free T4 (Free Thyroxine) 0.94 ng/dL (0.71-1.85); Thyroid Stimulating Hormone 2.36 uIU/mL (0.32-4.0)
[2023-05-12 08:21] LABS: Folate 12.5 ng/mL (> or = 4.0); Prostate Specific Antigen Scr 1.59 ng/mL (<0.05-4.0); Vitamin B12 449 pg/mL (200-900)
[2023-05-12 10:27] LABS: Microalbum/Creatinine Ratio Ur 7.7 ug/mg cr
== END 2023-05-12 06:41 | disposition home or self-care (01) ==
LOC: HO.LAB 06:40
PROVIDERS: PCP Internal Medicine; Visit Provider Internal Medicine
DX: Z12.5 Encounter for screening for malignant neoplasm of prostate (principal); E11.65 Type 2 diabetes mellitus with hyperglycemia; E78.00 Pure hypercholesterolemia, unspecified
CPT/HCPCS: 36415; 80053; 80061; 82043; 82607; 82746; 83036; 84153; 84439; 84443; 85025

== ENCOUNTER 2023-05-18 15:55 | Outpatient (REF) | payer OTHER, SELFPAY ==
--- NOTE | ~2023-05-18 | US_ITS ---
EXAMINATION: US PELVIS LIMITED (BLADDER) CLINICAL INFORMATION: Benign prostatic hyperplasia without lower urinary tract symptoms. COMPARISON: Ultrasound bladder 06/06/2021. TECHNIQUE: Real-time imaging of the bladder. FINDINGS: BLADDER: Well distended and normal. Bilateral ureteral jets are not demonstrated. Prevoid bladder volume is 198 mL. Postvoid bladder volume is 4 mL. ADDITIONAL FINDINGS: The prostate is enlarged measuring 63 mm. US/US bladder IMPRESSION: Enlarged prostate..
== END 2023-05-18 15:56 | disposition home or self-care (01) ==
LOC: HO.US 15:55
PROVIDERS: PCP Internal Medicine; Visit Provider Internal Medicine
DX: N40.0 Benign prostatic hyperplasia without lower urinary tract symptoms (principal)
CPT/HCPCS: 76857

== ENCOUNTER 2023-08-04 16:04 | Outpatient (AMB) | payer OTHER, SELFPAY ==
--- NOTE | 2023-08-04 16:50 | MHC.PC.OV ---
Vital Signs 08/04/23 16:54 Height 6 ft Weight 217 lb 8 oz BMI 29.5 BP 122/74 Blood Pressure Location Lt brachial Position Sitting Pulse 70 Pulse Source Pulse Oximeter Pulse Oximetry (%) 97 Oxygen Delivery Method Room Air Intake Visit Reasons: physical Intake Note: Patient is here today for a physical. 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: No Accompanied by: Self / Same As Patient Allergies latex Allergy (Verified 08/04/23 16:56) skin irritation, from CPAP mask Medication List - Last Reconciled 08/04/23 by Adrian Ceja MD blood sugar diagnostic (FreeStyle Lite Strips) As directed check the BS QD blood-glucose meter (FreeStyle Lite Meter kit) As directed diazepam (Valium) 2 mg PO BEDTIME PRN 30 days dulaglutide (Trulicity) 1.5 mg (0.5 mL) subcut QWEEK 90 days lancets (FreeStyle Lancets) As directed check BS QD lisinopril 20 mg PO DAILY 30 days metformin ER 1,000 mg (2 x 500 mg) PO BID pantoprazole (Protonix) 40 mg PO DAILY simvastatin 40 mg PO BEDTIME 90 days tamsulosin 0.4 mg PO BEDTIME Tobacco use date assessed: 04/21/23 Fall risk assessment: No Falls in past year Last assessed Fall Risk: 08/04/23 Dental Screening Dental Screen Date: 08/04/23 Did you have a dental visit in the last 12 months?: Yes Did you have a dental problem in the last 6 months where you did not have access to dental care?: No Was dental information given to patient?: Patient has dentist HPI physical HPI Details 73-year-old overweight male with controlled diabetes mellitus obstructive sleep apnea GERD hypertension hypothyroidism last seen in April 2023. Patient is here for physical exam. Colonoscopy up-to-date 2020 in September 3 years. Patient had an ultrasound of the pelvis/bladder May 2023 showing enlarged prostate to 63 mm called and no urinary retention. sleep study done 2019 mild but had bradycardia but cannot tolerate CPAP. also heel pain found to have spur on xray- did voltaren gel [facility] Medical History (Updated 08/04/23 @ 17:25 by Adrian Ceja MD) Headache Localized osteoarthritis of left knee Internal derangement of left knee Eczema Diastasis recti Anserine bursitis Frequency of micturition Painful arc syndrome of right shoulder Right shoulder pain Impacted cerumen of both ears Burn Obesity (BMI 30-39.9) Overweight (BMI 25.0-29.9) GERD (gastroesophageal reflux disease) Hypothyroidism Vitamin D deficiency Diabetic neuropathy associated with type 2 diabetes mellitus Hypertension History of hyperparathyroidism Surgical History Hx of umbilical hernia repair Hx of skin graft Hx of colonoscopy History of parathyroidectomy History of ankle surgery Family History Father No problems noted. 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 Edison Scott, Radha Quach, Richard Renteria and colleagues, with an educational lidya from [employer]. Review of Systems Const Denies poor appetite and Denies weakness Eyes Denies no additional complaints ENT Reports Normal hearing present, Denies dizziness, Denies nasal congestion, Denies tinnitus and Denies sore throat Card Denies chest pain, Denies syncope, Denies rapid heart rate and Denies dyspnea Resp Denies cough and Denies dyspnea GI Denies change in stool character, Reports constipation, Denies diarrhea, Denies nausea and Denies vomiting Denies dysuria and Denies urinary frequency Neuro Reports Normal hearing present, Denies confusion, Denies dizziness, Denies syncope and Denies weakness Psych Denies confusion Physical exam (Primary Care) Vital Signs: Last Vital Signs Pulse 70 08/04/23 16:54 BP 122/74 08/04/23 16:54 Pulse Ox 97 08/04/23 16:54 Oxygen Delivery Method Room Air 08/04/23 16:54 BMI result Body Mass Index 29.5 Tobacco/Smoking Status: Tobacco use Status Tobacco use date assessed 04/21/23 08/04/23 16:53 Patient Tobacco Use Status Never used Tobacco 08/04/23 16:53 e-Cigarette/Vaping Use Never Used 08/04/23 16:53 Thrive Assessment: Date of Thrive Assessment Date Thrive assessed 04/21/23 08/04/23 16:53 Const General: No confusion Orientation/consciousness: No confusion HENMT Head: Yes normocephalic Ears: external ears normal and TM's normal bilaterally Face and sinus: Yes normal facial exam Mouth: moist mucous membranes Throat: Yes tonsils normal Eyes Conjunctivae: conjunctivae normal Pupils: Equal, round and reactive pupils present and Pupil accommodation reflex normal Direct Ophthalmoscopy: normal light reflex Neck Neck: No lymphadenopathy Thyroid: Thyroid normal Chest Chest palpation & inspection: normal inspection of the chest Resp Effort & Inspection: normal respiratory effort and no audible wheezes Auscultation: clear to auscultation bilaterally, no crackles, no wheezes and lung sounds not diminished Cardio Rate: regular rate Rhythm: regular rhythm Peripheral pulses: radial pulses present and dorsalis pedis present GI Other: decline rectal Palpation (GI): no masses Auscultation: normal bowel sounds and normoactive bowel sounds Rectal Exam - Male: Yes deferred Skin General skin exam: no rashes or lesions noted Rashes: no rashes Neuro General: No confusion Cranial nerves: Yes Equal, round and reactive pupils present and Yes Normal hearing present Cognition (Neuro): normal cognition Gait exam (Neuro): Normal gait present Motor exam (neuro): 5/5 motor strength present throughout Deep tendon reflexes (DTR's): Right brachioradialis reflex intensity grade: 2+, Left brachioradialis reflex intensity grade: 2+, Right patellar reflex intensity grade: 2+ and Left patellar reflex intensity grade: 2+ Extrem General: No edema Assessment and Plan Assessment & Plan (1) Annual physical exam: Code(s): Z00.00 - Encounter for general adult medical examination without abnormal findings (2) Type 2 diabetes mellitus with hyperglycemia: Comment: Dr. Lloyd Code(s): E11.65 - Type 2 diabetes mellitus with hyperglycemia Qualifiers: Diabetes mellitus intermediate manager insulin use: without intermediate manager use Qualified Code(s): E11.65 - Type 2 diabetes mellitus with hyperglycemia Plan: Decrease the amount of carbohydrate intake, pasta, bread, rice and potatoes are all sugar and that is aside from all the sweet stuff, remember that fruits are good but they are Sweet also. Hemoglobin A1c goal of less than 7.0 patient on metformin 1000 mg twice a day Trulicity 1.5 mg once a week (3) Obstructive sleep apnea: Comment: 01/2019 Code(s): G47.33 - Obstructive sleep apnea (adult) (pediatric) (4) GERD (gastroesophageal reflux disease): Code(s): K21.9 - Gastro-esophageal reflux disease without esophagitis Qualifiers: Esophagitis presence: without esophagitis Qualified Code(s): K21.9 - Gastro-esophageal reflux disease without esophagitis Plan: Avoid the foods that causes that usually spicy foods, tomato products, juices, coffee, soda and foods that your sensitive to. After eating do not lie down, allow 3-4 hours before in lie down. And keep the head of bed above 30 degrees to avoid the acid from going up. On pantoprazole (5) Hypothyroidism: Code(s): E03.9 - Hypothyroidism, unspecified Qualifiers: Hypothyroidism type: acquired Qualified Code(s): E03.9 - Hypothyroidism, unspecified Plan: Continue with thyroid medication (6) Hypertension: Code(s): I10 - Essential (primary) hypertension Qualifiers: Hypertension type: essential hypertension Qualified Code(s): I10 - Essential (primary) hypertension Plan: Continue with blood pressure medication. Decrease salt intake and exercise patient on lisinopril 20 mg once a day (7) BPH (benign prostatic hyperplasia): Comment: May 2023 63 cc Code(s): N40.0 - Benign prostatic hyperplasia without lower urinary tract symptoms Plan: Continue with tamsulosin (8) KENDRICK (generalized anxiety disorder): Code(s): F41.1 - Generalized anxiety disorder Plan: Continue with medication as needed Coding Level of Care Code Est Pt Prev Care >65y(74026) Diagnoses Annual physical exam Z00.00 Type 2 diabetes mellitus with hyperglycemia, without long-term current use of insulin E11.65 Diabetes mellitus longterm insulin use: without intermediate manager use Obstructive sleep apnea G47.33 Gastroesophageal reflux disease without esophagitis K21.9 Esophagitis presence: without esophagitis Acquired hypothyroidism E03.9 Hypothyroidism type: acquired Essential hypertension I10 Hypertension type: essential hypertension BPH (benign prostatic hyperplasia) N40.0 KENDRICK (generalized anxiety disorder) F41.1
[2023-08-04 16:54] VITALS: BP 122/74; PULSE 70; O2SAT 97; BMI 29.5
== END 2023-08-04 17:55 | disposition home or self-care (01) ==
PROVIDERS: Visit Provider Internal Medicine
DX: Z00.00 Encounter for general adult medical examination without abnormal findings (principal); E11.65 Type 2 diabetes mellitus with hyperglycemia; G47.33 Obstructive sleep apnea (adult) (pediatric); K21.9 Gastro-esophageal reflux disease without esophagitis; E03.9 Hypothyroidism, unspecified; I10 Essential (primary) hypertension; N40.0 Benign prostatic hyperplasia without lower urinary tract symptoms; F41.1 Generalized anxiety disorder
CPT/HCPCS: 99397

== ENCOUNTER 2023-08-19 15:26 | Outpatient (AMB) | payer OTHER, SELFPAY ==
--- NOTE | 2023-08-19 15:32 | A.OFFVIS_ITS ---
Intake Intake Visit Reasons: BPH wo lower urinary tract symptoms Intake Note: New Patient presents for initial visit for BPH/nocturia Urology Medications: tamsulosin Blood Thinner: none PVR: 26ml's Tabulating Clerk Required: No Accompanied by: Self / Same As Patient Allergies latex Allergy (Verified 08/19/23 17:47) skin irritation, from CPAP mask Medication List - Last Reconciled 08/19/23 by VANDANA Cruz blood sugar diagnostic (FreeStyle Lite Strips) As directed check the BS QD blood-glucose meter (FreeStyle Lite Meter kit) As directed diazepam (Valium) 2 mg PO BEDTIME PRN 30 days dulaglutide (Trulicity) 1.5 mg (0.5 mL) subcut QWEEK 90 days lancets (FreeStyle Lancets) As directed check BS QD lisinopril 20 mg PO DAILY 30 days metformin ER 1,000 mg (2 x 500 mg) PO BID pantoprazole (Protonix) 40 mg PO DAILY simvastatin 40 mg PO BEDTIME 90 days HPI HPI Comments History of Present Illness Details Clarence is a very pleasant male patient of . He has a PMH of eczema, urinary frequency, GERD, hypothyroidism, vitamin-D deficiency, diabetic neuropathy associated with type 2 diabetes, hypertension, and diabetes. He presents to the office today as a new patient for lower urinary tract symptoms. In discussion with the patient today he reports noting ongoing issues with urinary frequency and nocturia. He otherwise denies urinary urgency, incontinence, hematuria, dysuria, foul smelling urine, changes to urinary stream, flank pain, fever, and or chills. He reports symptoms have been present for quite some time. He discusses being on flomax for approximately 2 years now. He reports noting improvement in urinary frequency throughout the day on 0.4 mg of Flomax however continues with 2-3 episodes of nocturia nightly. In review of patient's chart it appears bladder ultrasound was performed as well as PSA. These results reviewed with the patient today. PSA 05/27--1.6. Bladder ultrasound noted well distended and normal bladder. Bilateral ureteral jets are not demonstrated. Pre void bladder volume is approximately 200 mL. Postvoid bladder volume is approximately 5 mL. The prostate is enlarged measuring approximately 63 mL. Discussed at length potential causes for lower urinary tract symptoms patient is experiencing. In office urinalysis results reviewed with the patient today. PVR 26ml's. Discussed at length importance of managing diabetes for improvement in lower urinary tract symptoms. [facility] Medical History (Updated 08/19/23 @ 17:58 by VANDANA Cruz) Frequency of micturition Headache Localized osteoarthritis of left knee Internal derangement of left knee Eczema Diastasis recti Anserine bursitis Painful arc syndrome of right shoulder Right shoulder pain Impacted cerumen of both ears Burn Obesity (BMI 30-39.9) Overweight (BMI 25.0-29.9) GERD (gastroesophageal reflux disease) Hypothyroidism Vitamin D deficiency Diabetic neuropathy associated with type 2 diabetes mellitus Hypertension History of hyperparathyroidism Surgical History Hx of umbilical hernia repair Hx of skin graft Hx of colonoscopy History of parathyroidectomy History of ankle surgery Family History Father No problems noted. 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 Cognitive needs: No Hearing needs: No Vision needs: No Review of Systems Const Reports as per HPI Eyes Reports no additional complaints ENT Reports no additional complaints Card Reports as per HPI Resp Reports no additional complaints GI Reports no additional complaints Reports as per HPI Musc Reports as per HPI Skin/Breast Reports as per HPI Neuro Reports no additional complaints Psych Reports no additional complaints Endo Reports as per HPI Wiley/Lymph Reports no additional complaints Aller/Immun Reports no additional complaints Physical Exam Const General: cooperative, healthy appearing, comfortable, no acute distress, well developed, alert and awake Orientation/consciousness: patient oriented x3 Limitations: no limitations HEENT Head: Yes normal to inspection, Yes normocephalic and Yes atraumatic Ears: hearing grossly normal bilaterally Eyes General: appearance normal, both eyes and all related structures Neck Neck: Yes normal visual inspection and Yes trachea midline Chest Chest palpation & inspection: normal inspection of the chest Resp Effort & Inspection: normal respiratory effort and able to speak in complete sentences Cardio Rate: regular rate GI Inspection: Yes normal to inspection General: Yes no CVA tenderness Back/Spine/Pelvis Back: no CVA tenderness Skin General skin exam: no rashes or lesions noted Neuro General: patient oriented x3 Extrem General: Yes normal to inspection Psych Appearance: grossly normal and well kempt Mental Status: mental status grossly normal Speech and movement: Normal speech and movement present and Clear speech present Affect: normal affect Attitude: cooperative Thought process: Normal thought process present Thought content: Normal thought content present Insight: Good insight present (Psych) Judgement: Good judgement present (Psych) Office Procedures Post Void Residual Post Residual Void Post Void Residual (PVR): [id number] Void Residual by ultrasound Results AMB Urinalysis, Automated UA Leukoctes 0 Sharon/uL Last Edit by [email or web address] on 08/19/23 16:07 UA Nitrite Negative Last Edit by [email or web address] on 08/19/23 16:07 UA Urobilinogen 0.2 mg/dL Last Edit by [email or web address] on 08/19/23 16:07 UA Protein 0 mg/dL Last Edit by [email or web address] on 08/19/23 16:07 UA pH 6.0 Last Edit by [email or web address] on 08/19/23 16:07 UA Blood 0 Kurtis/uL Last Edit by [email or web address] on 08/19/23 16:07 UA Specific [place] 1.030 Last Edit by [email or web address] on 08/19/23 16:07 UA Ketone Negative Last Edit by [email or web address] on 08/19/23 16:07 UA Bilirubin 0 mg/dL Last Edit by [employer] on 08/19/23 16:07 UA Glucose 0 mg/dL Last Edit by [employer] on 08/19/23 16:07 Results Reviewed Results Reviewed: Laboratory Last Values Urine pH (Auto) 6.0 08/19/23 15:52 Specific [place] (Auto) 1.030 08/19/23 15:52 Urine Protein (Auto) 0 mg/dL 08/19/23 15:52 Glucose (UA)(Auto) 0 mg/dL 08/19/23 15:52 Urine Ketones (Auto) Negative 08/19/23 15:52 Urine Blood (Auto) 0 Kurtis/uL 08/19/23 15:52 Urine Nitrite (Auto) Negative 08/19/23 15:52 Urine Bilirubin (Auto) 0 mg/dL 08/19/23 15:52 Urine Urobilinogen (Auto) 0.2 mg/dL 08/19/23 15:52 Leukocyte Esterase (Auto) 0 Sharon/uL 08/19/23 15:52 Date of Service: 05/18/23 EXAMINATION: US PELVIS LIMITED (BLADDER) FINDINGS: BLADDER: Well distended and normal. Bilateral ureteral jets are not demonstrated. Prevoid bladder volume is 198 mL. Postvoid bladder volume is 4 mL. ADDITIONAL FINDINGS: The prostate is enlarged measuring 63 mm. IMPRESSION: Enlarged prostate. Assessment & Plan Assessment & Plan (1) Enlarged prostate: Code(s): N40.0 - Benign prostatic hyperplasia without lower urinary tract symptoms (2) Nocturia: Code(s): R35.1 - Nocturia Plan In office urinalysis results reviewed with the patient today; as noted above. PVR 26 mL. Discussed at length potential causes for lower urinary tract symptoms patient has been experiencing. Stop Flomax. Start finasteride as discussed and prescribed. Start terazosin as discussed and prescribed. Recent PSA and bladder ultrasound results reviewed with the patient today; as noted above. Discussed at length importance of managing diabetes for improvement in lower urinary tract symptoms as well as overall health and well-being. Discussed bladder triggers/irritants. Discussed near future in office cystocopy if symptoms persist and or worsen Discussed importance of continuing to limit fluids 2-3 hours prior to bed to assist with decreasing episodes of nocturia. Follow-up in 6 weeks with PVR; or sooner with any issues, concerns, and or questions. Orders: Orders AMB Urinalysis Automated Today Z13.9 - Encounter for screening, unspecified AMB Post Void Residual by ultrasound Today N40.0 - Benign prostatic hyperplasia without lower urinary tract symptoms Patient Instructions: The patient had an opportunity to ask questions regarding the treatment plan. All questions were answered. Physical exam, labs, and imaging were discussed and reviewed in detail. As well as risks, benefits, and discussion of treatment choices. No major barriers to understanding were identified. The patient expressed understanding and agreement with the above treatment plan. The patient was made aware they should contact our office by phone for worsening of their current condition, the appearance of new symptoms, or with any questions or concerns. Compliance is encouraged with any medications and follow up testing that is ordered. It is a privilege to be allowed the opportunity to participate in? your urological care.? Again, if you have any questions or concerns If you have any questions or concerns please do not hesitate to contact me. The office is [phone]. This note is constructed using voice recognition software. While every effort has been made to ensure accuracy quality lab assoc errors may have been included. Yours sincerely, VANDANA Cruz Coding Level of Care Code New Pt Level 4 (18031) Diagnoses Enlarged prostate N40.0 Nocturia R35.1 CPT Codes Post Residual Void - PVR CPT Code: 42543-Kztn Void Residual by ultrasound ([id number])
== END 2023-08-19 16:39 | disposition home or self-care (01) ==
PROVIDERS: PCP Internal Medicine; Visit Provider Nurse Practitioner Family
DX: N40.0 Benign prostatic hyperplasia without lower urinary tract symptoms (principal); R35.1 Nocturia; Z13.9 Encounter for screening, unspecified
CPT/HCPCS: 99204

== ENCOUNTER → 2023-08-19 15:26 | Outpatient (BNVA) | payer OTHER, SELFPAY | PROVIDERS: PCP Internal Medicine; Visit Provider Nurse Practitioner Family | DX: N40.0 Benign prostatic hyperplasia without lower urinary tract symptoms (principal); R35.1 Nocturia | CPT/HCPCS: 51798; 81003 ==

== ENCOUNTER 2023-12-10 14:31 | Outpatient (REF) | payer OTHER, SELFPAY ==
--- NOTE | ~2023-12-10 | MR_ITS ---
MR BRAIN WITHOUT AND WITH CONTRAST CLINICAL INFORMATION: Right-sided asymmetric sensorineural hearing loss and tinnitus. COMPARISON: None available. TECHNIQUE: Multiplanar, multisequence MRI of the brain was obtained before and after the intravenous administration of 10 mL Gadavist. FINDINGS: The inner ear structures including the cochlea, vestibules, and semicircular canals exhibit preserved CSF signal intensity with no pathologic enhancement. The vestibular aqueducts are not enlarged. Cranial nerves VII and VIII complexes are normal in morphology. No enhancing CP angle/retrocochlear lesion. There is no pathologic intracranial enhancement. Incidental left peritrigonal developmental venous anomaly. There is mild chronic microangiopathy. No acute infarct on diffusion-weighted imaging. No intracranial hemorrhage on the gradient series. No hydrocephalus, extra-axial surface collection, or herniation. The midline intracranial structures are normal. Cerebellar tonsils are normally positioned. Craniocervical junction is normal. Osseous marrow signal intensity remains homogeneous. No significant soft tissue abnormality is appreciated. MR/MR head/brain wo/w con IMPRESSION: No retrocochlear pathology. Mild chronic microangiopathy.
[2023-12-15] MEDS: gadobutroL 10 ML VIAL IVPUSH (14:10)
== END 2023-12-10 14:32 | disposition home or self-care (01) ==
LOC: HO.MRI 14:31
PROVIDERS: PCP Internal Medicine; Visit Provider Counselor Professional
DX: H93.11 Tinnitus, right ear (principal); H90.41 Sensorineural hearing loss, unilateral, right ear, with unrestricted hearing on the contralateral side
CPT/HCPCS: 70553; A9585

== ENCOUNTER 2025-01-09 17:06 | Outpatient (AMB) | payer OTHER, SELFPAY ==
[2025-01-09 17:25] VITALS: BP 114/70; PULSE 64; TEMP 36.2; O2SAT 99; BMI 29.9
--- NOTE | 2025-01-09 17:25 | A.OFFPC_ITS ---
Vital Signs 01/09/25 17:25 Height 6 ft Weight 220 lb 4 oz BMI 29.9 BP 114/70 Blood Pressure Location Lt brachial Position Sitting Pulse 64 Pulse Source Pulse Oximeter Temp 97.1 F Temp Source Temporal Artery Scan Pulse Oximetry (%) 99 Oxygen Delivery Method Room Air Intake Visit Reasons: PE Working Supervisor Required: No Accompanied by: Self / Same As Patient Allergies latex Allergy (Verified 01/09/25 17:29) skin irritation, from CPAP mask Medication List - Last Reconciled 01/09/25 by Adrian Ceja MD alclometasone 0.05% 1 appl topical BID PRN 7 days blood sugar diagnostic (FreeStyle Lite Strips) As directed check the BS QD blood-glucose meter (FreeStyle Lite Meter kit) As directed clotrimazole 1% 1 appl topical BID 4 weeks diazepam 2 mg PO BEDTIME PRN 30 days lancets (FreeStyle Lancets) As directed check BS QD lisinopril 20 mg PO DAILY 30 days metformin ER 1,000 mg (2 x 500 mg) PO BID pantoprazole (Protonix) 40 mg PO DAILY semaglutide (Ozempic) 1 mg (0.75 mL) subcut QWEEK simvastatin 40 mg PO BEDTIME 90 days tamsulosin 0.4 mg PO BEDTIME Tobacco use date assessed: 01/09/25 Fall risk assessment: No Falls in past year Last assessed Fall Risk: 01/09/25 Dental Screening Dental Screen Date: 01/09/25 Did you have a dental visit in the last 12 months?: Yes Did you have a dental problem in the last 6 months where you did not have access to dental care?: No Was dental information given to patient?: Patient has dentist HPI PE HPI Details occ dizzy PFSH Medical History (Updated 01/09/25 @ 18:02 by Adrian Ceja MD) Frequency of micturition Headache Localized osteoarthritis of left knee Internal derangement of left knee Eczema Diastasis recti Anserine bursitis Painful arc syndrome of right shoulder Right shoulder pain Impacted cerumen of both ears Burn Obesity (BMI 30-39.9) Overweight (BMI 25.0-29.9) GERD (gastroesophageal reflux disease) Hypothyroidism Vitamin D deficiency Diabetic neuropathy associated with type 2 diabetes mellitus Hypertension History of hyperparathyroidism Surgical History Hx of umbilical hernia repair Hx of skin graft Hx of colonoscopy History of parathyroidectomy History of ankle surgery Family History Father No problems noted. 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 1. Little interest or pleasure in doing things: nearly every day 2. Feeling down, depressed, or hopeless: nearly every day 3. Trouble falling or staying asleep, or sleeping too much: several days 4. Feeling tired or having little energy: nearly every day 5. Poor appetite or overeating: not at all 6. Feeling bad about yourself - or that you are a failure or have let yourself or your family down: not at all 7. Trouble concentrating on things, such as reading the newspaper or watching television: more than half the days 8. Moving or speaking so slowly that other people could have noticed. Or the opposite - being so fidgety or restless that you have been moving around a lot more than usual: not at all 9. Thoughts that you would be better off or of hurting yourself in some way: not at all Total score: 12 61350 - PHQ-9 Billing: Yes Source: Developed by Drs. Edison Scott, Radha Quach, Richard Renteria and colleagues, with an educational lidya from [employer]. Thrive Questionnaire Date Thrive assessed: 01/09/25 I am a: Patient What is your living situation today?: I choose not to answer this question Within the past 12 months, did the food you bought not last and you didn't have the money to get more?: I choose not to answer this question Within the past 12 months, did you worry whether your food would run out before you got money to buy more?: Never true Do you have trouble paying for medicines?: I choose not to answer this question Do you have trouble getting transportation to medical appointments?: I choose not to answer this question Do you have trouble paying your heating and electricity bill?: I choose not to answer this question Do you have trouble taking care of your child, family member or friend?: I choose not to answer this question Do you have trouble with day-to-day activities such as bathing, preparing meals, shopping, managing finances, etc.?: I choose not to answer this question Are you currently unemployed and looking for a job?: I choose not to answer this question Are you interested in more education?: I choose not to answer this question Please select the resources that you would like help with: None Currently or been in a relationship where the following occur: I choose not to answer THRIVE Score: 0 AUDIT C Alcohol Use Questionnaire (AUDIT-C) 1. How often do you have a drink containing alcohol?: Never 3. How often do you have six or more drinks on one occasion?: Never Total Score: 0 KENDRICK-7 AMB Questionnaire KENDRICK-7 Date KENDRICK - 7 assessed: 01/09/25 Feeling nervous, anxious, or on edge: 3 = Nearly every day Not being able to stop or control worryin = Not at all Worrying too much about different things: 0 = Not at all Trouble relaxin = Several days Being so restless that it is hard to sit still: 0 = Not at all Becoming easily annoyed or irritable: 3 = Nearly every day Feeling afraid as if something awful might happen: 0 = Not at all Total KENDRICK-7 score (0-4 normal; 5-9 mild; 10-14 moderate; 15-21 severe): 7 Source: Developed by Drs. Edison Scott, Rdaha Quach, Richard Renteria and colleagues, with an educational lidya from [employer]. KENDRICK-7 Assessment Billing KENDRICK-7 Assessment Tool: KENDRICK-7 Assessment 82548 Review of Systems Const Denies poor appetite and Denies weakness Eyes Denies no additional complaints ENT Reports Normal hearing present, Denies dizziness, Denies nasal congestion, Denies tinnitus and Denies sore throat Card Denies chest pain, Denies syncope, Denies rapid heart rate and Denies dyspnea Resp Denies cough and Denies dyspnea GI Denies change in stool character, Reports constipation, Denies diarrhea, Denies nausea and Denies vomiting Denies dysuria and Denies urinary frequency Neuro Reports Normal hearing present, Denies confusion, Denies dizziness, Denies syncope and Denies weakness Psych Denies confusion Physical exam (Primary Care) Vital Signs: Last Vital Signs Temp 97.1 F 01/09/25 17:25 Pulse 64 01/09/25 17:25 BP 114/70 01/09/25 17:25 Pulse Ox 99 01/09/25 17:25 Oxygen Delivery Method Room Air 01/09/25 17:25 BMI result Body Mass Index 29.9 Tobacco/Smoking Status: Tobacco use Status Tobacco use date assessed 01/09/25 01/09/25 17:30 Patient Tobacco Use Status Never used Tobacco 01/09/25 17:30 e-Cigarette/Vaping Use Never Used 01/09/25 17:30 PHQ-9: PHQ-9 Score PHQ-9: Total score 12 01/09/25 17:30 Thrive Assessment: Date of Thrive Assessment Date Thrive assessed 01/09/25 01/09/25 17:30 Currently or been in a relationship where the following occur: I choose not to answer Const General: No confusion Orientation/consciousness: No confusion HENCA Head: Yes normocephalic Ears: external ears normal and TM's normal bilaterally Face and sinus: Yes normal facial exam Mouth: moist mucous membranes Throat: Yes tonsils normal Eyes Conjunctivae: conjunctivae normal Pupils: Equal, round and reactive pupils present and Pupil accommodation reflex normal Direct Ophthalmoscopy: normal light reflex Neck Neck: No lymphadenopathy Thyroid: Thyroid normal Chest Chest palpation & inspection: normal inspection of the chest Resp Effort & Inspection: normal respiratory effort and no audible wheezes Auscultation: clear to auscultation bilaterally, no crackles, no wheezes and lung sounds not diminished Cardio Rate: regular rate Rhythm: regular rhythm Peripheral pulses: radial pulses present and dorsalis pedis present GI Other: REFERRAL FOR COLONOSCOPY DONE Palpation (GI): no masses Auscultation: normal bowel sounds and normoactive bowel sounds Rectal Exam - Male: Yes deferred Other: Declined Skin General skin exam: no rashes or lesions noted Rashes: no rashes Neuro General: No confusion Cranial nerves: Yes Equal, round and reactive pupils present and Yes Normal hearing present Cognition (Neuro): normal cognition Gait exam (Neuro): Normal gait present Motor exam (neuro): 5/5 motor strength present throughout Deep tendon reflexes (DTR's): Right brachioradialis reflex intensity grade: 2+, Left brachioradialis reflex intensity grade: 2+, Right patellar reflex intensity grade: 2+ and Left patellar reflex intensity grade: 2+ Extrem General: No edema Coding Level of Care Code Est Pt Prev Care >65y(12501) Diagnoses Annual physical exam Z00.00 Type 2 diabetes mellitus with hyperglycemia, without long-term current use of insulin E11.65 Diabetes mellitus snf insulin use: without terminal makeup operator use Tubular adenoma of colon D12.6 Acquired hypothyroidism E03.9 Hypothyroidism type: acquired Essential hypertension I10 Hypertension type: essential hypertension BPH (benign prostatic hyperplasia) N40.0 KENDRICK (generalized anxiety disorder) F41.1 Hypercholesterolemia E78.00 Additional Codes KENDRICK-7 Assessment Billing - KENDRICK-7 Assessment Tool: KENDRICK-7 Assessment 52128 ([id number]) PHQ-9 - 17516 - PHQ-9 Billing: Yes ([id number]) Assessment & Plan Assessment & Plan (1) Annual physical exam: Code(s): Z00.00 - Encounter for general adult medical examination without abnormal findings Category: Medical Plan: Patient is advised to eat healthy, keep well hydrated, keep active and have adequate sleep. (2) Type 2 diabetes mellitus with hyperglycemia: Comment: Dr. Lloyd Code(s): E11.65 - Type 2 diabetes mellitus with hyperglycemia Category: Medical Qualifiers: Diabetes mellitus terminal makeup operator insulin use: without snf use Qualified Code(s): E11.65 - Type 2 diabetes mellitus with hyperglycemia Plan: Decrease the amount of carbohydrate intake, pasta, bread, rice and potatoes are all sugar and that is aside from all the sweet stuff, remember that fruits are good but they are Sweet also. Hemoglobin A1c goal of less than 7.0 on metformin a 1000 mg twice a day and Ozempic 1 mg once a week (3) Tubular adenoma of colon: Code(s): D12.6 - Benign neoplasm of colon, unspecified Category: Medical Plan: Patient is reminded about colonoscopy (4) Hypothyroidism: Code(s): E03.9 - Hypothyroidism, unspecified Category: Medical Qualifiers: Hypothyroidism type: acquired Qualified Code(s): E03.9 - Hypothyroidism, unspecified Plan: Patient needs blood (5) Hypertension: Code(s): I10 - Essential (primary) hypertension Category: Medical Qualifiers: Hypertension type: essential hypertension Qualified Code(s): I10 - Essential (primary) hypertension Plan: Continue with blood pressure medication. Decrease salt intake and exercise on lisinopril 20 mg once a day (6) BPH (benign prostatic hyperplasia): Comment: May 2023 63 cc Code(s): N40.0 - Benign prostatic hyperplasia without lower urinary tract symptoms Category: Medical Plan: Continue with tamsulosin and sent in tadalafil (7) KENDRICK (generalized anxiety disorder): Code(s): F41.1 - Generalized anxiety disorder Category: Medical Plan: Continue with therapy. Started with Wellbutrin (8) Hypercholesterolemia: Code(s): E78.00 - Pure hypercholesterolemia, unspecified Category: Medical Plan: Avoid fried foods, chicken skin, eggs, butter margarine, pastries and meat. Be it pork or beef they have a lot of cholesterol LDL goal of less than 100 and triglyceride of less than 150 Plan History of Present Illness The patient is a 74-year-old male presenting for an annual physical examination and management of several chronic conditions. He has a well-documented history of Type 2 Diabetes Mellitus with a current HbA1c at 6.1% managed with metformin and semaglutide. Essential Hypertension is addressed with lisinopril, achieving good blood pressure control. Dyslipidemia management with simvastatin resulted in an LDL level of 62 mg/dL in 2022. His medical history includes benign prostatic hyperplasia identified during a previous colonoscopy and causing frequent nocturia. Tamsulosin treatment is currently inadequate due to intolerance issues related to sexual side effects. He also suffers from chronic generalized anxiety disorder, with valium providing insufficient relief; consideration for an alternative medication is discussed. Management of GERD and Obstructive Sleep Apnea remains consistent with prior protocols, MRI for tinnitus was unremarkable. Chronic anemia was noted in previous bloodwork without significant electrolyte imbalance. Health Maintenance - Last colonoscopy performed in September 2021; follow-up planned for 2023. - Eye examination scheduled for April 2024, previous findings showed no retinopathy. - Routine blood work conducted May 2023 indicated chronic anemia with normal electrolytes. - Vaccinations up to date including pneumonia and shingles. Social History - Does not consume alcohol or use tobacco. - Reports having a supportive family structure, residing with a spouse who is currently facing a health challenge. - States he is a but [facility] - Reports hearing issues managed with hearing aids but sometimes prefers not to use them in familial conversations. Review of Systems - Cardiovascular: Denies chest pain or shortness of breath. - Gastrointestinal: Denies heartburn; regular bowel movements. - Neurological: Reports dizziness but denies nausea or vomiting. Denies loss of consciousness. - Genitourinary: Reports nocturia every hour. - Musculoskeletal: Denies joint pain or swelling. - Neurological: Reports tinnitus and wearing hearing aids. Physical Exam General: Cooperative, healthy appearing, comfortable, no acute distress and well developed Orientation: Patient oriented x3 Limitations: No limitations Head: Normal to inspection Ears: Hearing aids present, hearing problems noted Nose: Normal external nose present Face and sinus: Normal facial exam Eyes: Appearance normal, both eyes and all related structures Neck: Normal visual inspection and Yes full ROM Respiratory: Normal respiratory effort and able to speak in complete sentences. Clear to auscultation bilaterally Cardiovascular: Regular rate and rhythm. Normal S1 and S2 GI: Normal to inspection. Soft to palpation and nontender Skin: No rashes or lesions noted Neuro: Patient oriented x3 Extremities: Normal to inspection Results - Labs: May 2023, A1c of 6.1%, LDL 62 mg/dL. - Imaging: MRI in December 2023 for tinnitus returned negative results. Plan During today's visit, I confirmed continuation of the patient's chronic disease management regimen, including metformin and semaglutide for diabetes, lisinopril for hypertension, simvastatin for dyslipidemia, and tamsulosin for BPH. I considered alternatives, such as using tadalafil, pending urological consultation. Initiated Wellbutrin for anxiety management given insufficient relief with current diazepam use. Encouraged the patient to maintain normal lifestyle adaptations, Pending diagnostic evaluations, including repeat colon oscopy and ophthalmologic follow-up, were discussed and planned. The patient remains adherent to current treatments, with additional follow-ups scheduled to assess control of chronic anemia and any emerging complications. Patient was informed and verbally consented to the use of an ambient scribe for clinic note documentation during this visit. Discussion Notes Today, I reviewed the patient's management plan for chronic conditions, including diabetes, hypertension, and BPH treatments, considering medication alternatives after acknowledging current treatment limitations. Discussions provided clarity on initiating Wellbutrin for anxiety with an emphasis on the switch's advantages. I urged adherence to established treatment regimens for GERD, hypothyroidism, and sleep apnea, reinforcing the necessity of upcoming diagnostic tests like colonoscopy and eye exams. Email follow-up and telecommunications with urology for tadalafil use were advised, informing the patient of the enhanced therapeutic benefits and addressing insurance coverage inquiries. Patient Instructions - Continue taking lisinopril, metformin, simvastatin, and other prescribed medications as instructed. - - Start Wellbutrin for anxiety management as directed. - Schedule follow-up for colonoscopy and eye examinations in the summer months as planned. - Monitor blood glucose regularly and report abnormal readings. - Contact the urologist regarding tamsulosin effects and discuss alternatives. - Maintain nutritional and physical activity levels to support overall health. - Attend follow-up appointments for chronic conditions and any additional consultations. Orders: Orders Complete Blood Count Auto Diff Today E11.65 - Type 2 diabetes mellitus with hyperglycemia Comprehensive Met. Panel Today E11.65 - Type 2 diabetes mellitus with hyperglycemia Thyroid Stimulating Hormone Today E11.65 - Type 2 diabetes mellitus with hyperglycemia Vitamin B12 and Folate Today E11.65 - Type 2 diabetes mellitus with hyperglycemia Lipid Panel Today E11.65 - Type 2 diabetes mellitus with hyperglycemia, E78.00 - Pure hypercholesterolemia, unspecified Creatinine Urine Today E11.65 - Type 2 diabetes mellitus with hyperglycemia Free T4 (Free Thyroxine) Today E11.65 - Type 2 diabetes mellitus with hyperglycemia Hemoglobin A1c Today E11.65 - Type 2 diabetes mellitus with hyperglycemia Microalbumin, Random (w Creat) Today E11.65 - Type 2 diabetes mellitus with hyperglycemia Referrals Gastroenterology Referral D12.6 - Benign neoplasm of colon, unspecified Medications: New bupropion HCl XL (Wellbutrin XL) 150 mg PO QAM 30 tabs 2RF F41.1 - Generalized anxiety disorder tadalafil 5 mg PO DAILY 30 tabs 2RF N40.0 - Benign prostatic hyperplasia without lower urinary tract symptoms Refilled tamsulosin 0.4 mg PO BEDTIME 90 caps 2RF N40.0 - Benign prostatic hyperplasia without lower urinary tract symptoms
--- OUTSIDE RECORDS SUMMARY | 2025-01-09 18:52 | XMS_ITS | Clinical Summary ---
Author Organization [facility] Address [address] [place] [address] Care Team Providers Care Pattern Ruler Name Role Phone Pcp, No Primary Care Provider Unavailabl e Allergies No known active allergies Medications Medication Sig Dispensed Refills Start Date End Date Status OMEprazole (PriLOSEC) 10 MG capsule Take 10 mg by mouth daily. Active Social History Tobacco Use Types Packs/Day Years Used Date Smoking Tobacco: Never Alcohol Use Standard Drinks/Week Comments No 0 (1 standard drink = 0.6 oz pur e alcohol) Sex and Gender Information Value Date Recorded Sex Assigned at Not on file Gender Identity Not on file Sexual Orientation Not on file Last Filed Vital Signs Vital Sign Reading Time Taken Comments Blood Pressure 110/70 04/08/2017 11:03 AM EDT IR REGULAR Pulse 84 04/08/2017 11:03 AM EDT Temperature 36.8 ??C (98.3 ??F) 04/08/2017 11:03 AM E DT Respiratory Rate 12 04/08/2017 11:03 AM EDT Oxygen Saturation - - Inhaled Oxygen Concentration - - Weight 109 kg (240 lb) 04/08/2017 11:03 AM EDT Height 182.9 cm (6') 04/08/2017 11:03 AM EDT Body Mass Index 32.55 04/08/2017 11:03 AM EDT Plan of Treatment Health Maintenance Due Date Last Done Comments Hepatitis C Virus Screening 1950 DTaP/Tdap/Td Vaccines (1 - Tdap) 02/02/1971 Colonoscopy 02/02/1997 Pneumococcal Vaccines 50+ (1 of 1 - PCV) 02/02/2002 Zoster (Shingles) Vaccine (1 of 2) 02/02/2002 Influenza Vaccine 05/05/2024 COVID-19 Vaccine ( - 2023-2 5 season) 2024 RSV Vaccine 60 years and old er and Patients (1 - 1-dose 75+ series) 02/02/2027 Hepatitis B Vaccines Aged Out No long er eligible based on patient's age to complete this topic Care Teams Pattern Ruler Relationship Specialty Start Date End Date Pcp, No PCP - General General Medicine 09/08/16
--- OUTSIDE RECORDS SUMMARY | 2025-01-09 18:52 | XMS_ITS | Patient Health Record ---
Author Organization [facility] Address [address] [place] [address] Care Team Providers Care Diet Clerk Name Role Phone Adrian Ceja MD Primary Care Provider Edison Del Rosario [phone] Allergies No Known Allergies Reason For Referral No Information Medications Medication SIG (Take, Route, Frequency, Duration) Notes Start Date End Date Status Levothyroxine Sodium 50 MCG Oral for 90 Active metFORMIN HCl ER 500 MG TAKE TWO TABLETS BY MOUTH TWICE A DAY Oral bid Active Trulicity 1.5 MG/0.5ML Subcutaneous for 84 Active Pantoprazole Sodium 40 MG Oral for 90 Active Lisinopril 40 MG TAKE ONE TABLET BY M OUTH EVERY DAY Orally Once a day Active Simvastatin 40 MG Oral for 30 Active Immunizations Vaccine Route Administration Date Status Comme nts Influenza Unknown 08/16/2021 Refused Social History Tobacco Use: Social History Observation Description Date Details (start date - stop date) Never Smoker NA - NA Tobacco Use/Smoking Question Answer Notes Patient is a nonsmoker Alcohol Screen Question Answer Notes Did you have a drink containing alcohol in the p ast year? No Points 0 Interpretation Negative Section Notes: Nonsmoker; no sig alcohol. Originally from [facility] Problems Problem Type SNOMED Code ICD Code Onset Dates Problem Status W/U Status Risk Notes Problem 902869897 Encounter for screening for malignant neoplasm of colon (Z12.11) Active confirmed Problem 140252534 History of adenomatous polyp of colon (Z86.010) Active confirmed Problem Gastroesophageal reflux disease (886599987) Gastroesophageal reflux disease (K21.9) Active confirmed Problem Diverticulosis of colon (123187845) Diverticulosis of colon (K57.30) Active confirmed Problem 704139402 Gastroesophageal reflux disease, unspecified whether esophagitis present (K21.9) Active confirmed Plan Of Treatment Future Test Test Name Order Date UPPER GI ENDOSCOPY 08/16/2021 COLONOSCOPY 08/16/2021 Insurance Providers Payer Name Payer Address Payer Phone Subscriber Number Group Number Insured Name Patient Relationship to Insured Coverage Start Date Coverage End Date [employer] [address] [address] [place] [address] [id number] BREANNA SNYDER Self - patient is the insured Medical (General) History Medical History History ICD Code NIDDM Hypothyroidism Hypertension Hypercholesterolemia Hyperparathyroidism Vitamin D deficiency GERD Diabetic neuropathy Denies [place],DM,CVA,Lung disease,renal dise ase Surgical History Surgery Date(Month/Year) Ankle surgery Parathyroidectomy Skin [place] from [place]
== END 2025-01-09 18:20 | disposition home or self-care (01) ==
LOC: HO.HMCH 17:07
PROVIDERS: PCP Internal Medicine; Visit Provider Internal Medicine
DX: Z00.00 Encounter for general adult medical examination without abnormal findings (principal); E11.65 Type 2 diabetes mellitus with hyperglycemia; D12.6 Benign neoplasm of colon, unspecified; E03.9 Hypothyroidism, unspecified; I10 Essential (primary) hypertension; N40.0 Benign prostatic hyperplasia without lower urinary tract symptoms; F41.1 Generalized anxiety disorder; E78.00 Pure hypercholesterolemia, unspecified

== ENCOUNTER → 2025-01-09 17:06 | Outpatient (BNVA) | payer OTHER, SELFPAY | PROVIDERS: PCP Internal Medicine; Visit Provider Internal Medicine | DX: Z00.00 Encounter for general adult medical examination without abnormal findings (principal); E11.65 Type 2 diabetes mellitus with hyperglycemia; E03.9 Hypothyroidism, unspecified; I10 Essential (primary) hypertension; N40.0 Benign prostatic hyperplasia without lower urinary tract symptoms; F41.1 Generalized anxiety disorder; E78.00 Pure hypercholesterolemia, unspecified; D12.6 Benign neoplasm of colon, unspecified; Z79.84 Long term (current) use of oral hypoglycemic drugs; Z79.899 Other long term (current) drug therapy | CPT/HCPCS: 96127 ==

== ENCOUNTER 2025-03-08 06:30 | Outpatient (REF) | payer OTHER, SELFPAY ==
[2025-03-08 06:46] LABS: MANUAL DIFF FLAG NO
[2025-03-08 07:16] LABS: Basophils Absolute Auto 0.1 X10*3/uL (0.0-0.2); Basophils Percent Auto 0.7 % (0-2); Eosinophils Absolute Auto 0.2 X10*3/uL (0.0-0.4); Eosinophils Percent Auto 2.7 % (0-4); Hemoglobin 13.4 g/dl (14.0-18.0); Imm Gran Abs Auto 0.03 X10*3/uL (0.00-0.03); Imm Gran Pct Auto 0.4 % (0.0-0.4); Lymphocytes Absolute Auto 1.9 X10*3/uL (1.2-4.9); Lymphocytes Percent Auto 26.6 % (20-40); Mean Corpuscular HGB Conc 32.7 g/dl (31.0-36.0); Mean Corpuscular Hemoglobin 26.7 pg (27.0-33.0); Mean Corpuscular Volume 81.7 fL (80.0-98.0); Monocytes Absolute Auto 0.6 X10*3/uL (0.1-1.2); Monocytes Percent Auto 8.3 % (2-11); Neutrophils Absolute Auto 4.3 x10*3/uL (2.0-8.3); Neutrophils Percent Auto 61.3 % (45-73); Platelet Count 255 X10*3/uL (160-400); Red Blood Count 5.02 X10*6/uL (4.60-5.80); Red Cell Distribution Width 12.3 % (11.0-16.0)
[2025-03-08 07:24] LABS: Estimated Average Glucose 134 mg/dL; Hemoglobin A1c % 6.3 % (<6.0)
[2025-03-08 07:35] LABS: Creatinine Urine 188.89 mg/dL; Microalbum/Creatinine Ratio Ur 5.2 ug/mg cr (<30)
[2025-03-08 07:54] LABS: Alanine Aminotransferase 49 U/L (0-40); Albumin Level 4.3 g/dL (3.5-5.0); Anion Gap 15 (12-20); Aspartate Amino Transferase 28 U/L (5-37); Bilirubin Total 0.4 mg/dL (0.0-1.0); Blood Urea Nitrogen 20 mg/dL (9-16); Calcium 9.3 mg/dL (8.4-10.2); Carbon Dioxide 27 mmol/L (22-29); Chloride 103 mmol/L (96-108); Cholesterol 141 mg/dL (<200); Estimated Glomerular Filt Rate > 60; Glucose Random 176 mg/dL (60-115); HDL Cholesterol 44 mg/dL (>40); LDL Cholesterol Calculated 66 mg/dL (<100); Potassium 4.6 mmol/L (3.3-5.1); Sodium 140 mmol/L (135-145); Total Protein 6.9 g/dL (6.5-8.0); Triglycerides 157 mg/dL (<150)
[2025-03-08 08:09] LABS: Free T4 (Free Thyroxine) 0.94 ng/dL (0.71-1.85); Thyroid Stimulating Hormone 1.61 uIU/mL (0.32-4.0)
[2025-03-08 08:10] LABS: Vitamin B12 516 pg/mL (200-900)
[2025-03-08 13:05] LABS: Alkaline Phosphatase 64 U/L (39-117)
== END 2025-03-08 06:31 | disposition home or self-care (01) ==
LOC: HO.LAB 06:30
PROVIDERS: PCP Internal Medicine; Visit Provider Internal Medicine
DX: E11.65 Type 2 diabetes mellitus with hyperglycemia (principal); E78.00 Pure hypercholesterolemia, unspecified
CPT/HCPCS: 36415; 80053; 80061; 82043; 82570; 82607; 82746; 83036; 84439; 84443; 85025

== ENCOUNTER 2025-04-24 16:30 | Outpatient (AMB) | payer OTHER, SELFPAY ==
[2025-04-24 16:32] VITALS: BP 118/74; PULSE 78; O2SAT 97; BMI 29.0
--- NOTE | 2025-04-24 16:32 | A.OFFPC_ITS ---
Vital Signs 04/24/25 16:32 Height 6 ft Weight 213 lb 8 oz BMI 29.0 BP 118/74 Blood Pressure Location Lt brachial Position Sitting Pulse 78 Pulse Source Pulse Oximeter Pulse Oximetry (%) 97 Oxygen Delivery Method Room Air Intake Visit Reasons: DM Community Leader Required: No Accompanied by: Self / Same As Patient Allergies latex Allergy (Verified 04/24/25 16:34) skin irritation, from CPAP mask Medication List - Last Reconciled 04/24/25 by Adrian Ceja MD alclometasone 0.05% 1 appl topical BID PRN 7 days blood sugar diagnostic (FreeStyle Lite Strips) As directed check the BS QD blood-glucose meter (FreeStyle Lite Meter kit) As directed bupropion HCl XL (Wellbutrin XL) 150 mg PO QAM clotrimazole 1% 1 appl topical BID 4 weeks diazepam 2 mg PO BEDTIME PRN 30 days lancets (FreeStyle Lancets) As directed check BS QD lisinopril 20 mg PO DAILY 30 days metformin ER 1,000 mg (2 x 500 mg) PO BID pantoprazole (Protonix) 40 mg PO DAILY semaglutide (Ozempic) 1 mg (0.75 mL) subcut QWEEK simvastatin 40 mg PO BEDTIME 90 days tadalafil 5 mg PO DAILY tamsulosin 0.4 mg PO BEDTIME Tobacco use date assessed: 04/24/25 Fall risk assessment: No Falls in past year Last assessed Fall Risk: 04/24/25 Dental Screening Dental Screen Date: 04/24/25 Did you have a dental visit in the last 12 months?: Yes Did you have a dental problem in the last 6 months where you did not have access to dental care?: No Was dental information given to patient?: Patient has dentist [facility] Medical History (Updated 03/08/25 @ 08:06 by Adrian Ceja MD) Frequency of micturition Headache Localized osteoarthritis of left knee Internal derangement of left knee Eczema Diastasis recti Anserine bursitis Painful arc syndrome of right shoulder Right shoulder pain Impacted cerumen of both ears Burn Obesity (BMI 30-39.9) Overweight (BMI 25.0-29.9) GERD (gastroesophageal reflux disease) Hypothyroidism Vitamin D deficiency Diabetic neuropathy associated with type 2 diabetes mellitus Hypertension History of hyperparathyroidism Surgical History Hx of umbilical hernia repair Hx of skin graft Hx of colonoscopy History of parathyroidectomy History of ankle surgery Family History Father No problems noted. 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 1. Little interest or pleasure in doing things: nearly every day 2. Feeling down, depressed, or hopeless: nearly every day 3. Trouble falling or staying asleep, or sleeping too much: several days 4. Feeling tired or having little energy: nearly every day 5. Poor appetite or overeating: not at all 6. Feeling bad about yourself - or that you are a failure or have let yourself or your family down: not at all 7. Trouble concentrating on things, such as reading the newspaper or watching television: more than half the days 8. Moving or speaking so slowly that other people could have noticed. Or the opposite - being so fidgety or restless that you have been moving around a lot more than usual: not at all 9. Thoughts that you would be better off or of hurting yourself in some way: not at all Total score: 12 02224 - PHQ-9 Billing: Yes Source: Developed by Drs. Edison Scott, Radha Quach, Richard Renteria and colleagues, with an educational lidya from [employer] Thrive Questionnaire Date Thrive assessed: 04/24/25 I am a: Patient What is your living situation today?: I choose not to answer this question Within the past 12 months, did the food you bought not last and you didn't have the money to get more?: I choose not to answer this question Within the past 12 months, did you worry whether your food would run out before you got money to buy more?: Never true Do you have trouble paying for medicines?: I choose not to answer this question Do you have trouble getting transportation to medical appointments?: I choose not to answer this question Do you have trouble paying your heating and electricity bill?: I choose not to answer this question Do you have trouble taking care of your child, family member or friend?: I choose not to answer this question Do you have trouble with day-to-day activities such as bathing, preparing meals, shopping, managing finances, etc.?: I choose not to answer this question Are you currently unemployed and looking for a job?: I choose not to answer this question Are you interested in more education?: I choose not to answer this question Please select the resources that you would like help with: None Currently or been in a relationship where the following occur: I choose not to answer THRIVE Score: 0 AUDIT C Alcohol Use Questionnaire (AUDIT-C) 1. How often do you have a drink containing alcohol?: Never 3. How often do you have six or more drinks on one occasion?: Never Total Score: 0 KENDRICK-7 AMB Questionnaire KENDRICK-7 Date KENDRICK - 7 assessed: 04/24/25 Feeling nervous, anxious, or on edge: 3 = Nearly every day Not being able to stop or control worryin = Not at all Worrying too much about different things: 0 = Not at all Trouble relaxin = Several days Being so restless that it is hard to sit still: 0 = Not at all Becoming easily annoyed or irritable: 3 = Nearly every day Feeling afraid as if something awful might happen: 0 = Not at all Total KENDRICK-7 score (0-4 normal; 5-9 mild; 10-14 moderate; 15-21 severe): 7 Source: Developed by Drs. Edison Scott, Radha Quach, Richard Renteria and colleagues, with an educational lidya from [employer]. KENDRICK-7 Assessment Billing KENDRICK-7 Assessment Tool: KENDRICK-7 Assessment 47220 Physical exam (Primary Care) Vital Signs: Last Vital Signs Pulse 78 04/24/25 16:32 BP 118/74 04/24/25 16:32 Pulse Ox 97 04/24/25 16:32 Oxygen Delivery Method Room Air 04/24/25 16:32 BMI result Body Mass Index 29.0 Tobacco/Smoking Status: Tobacco use Status Tobacco use date assessed 04/24/25 04/24/25 16:35 Patient Tobacco Use Status Never used Tobacco 04/24/25 16:35 e-Cigarette/Vaping Use Never Used 04/24/25 16:35 PHQ-9: PHQ-9 Score PHQ-9: Total score 12 04/24/25 16:35 Thrive Assessment: Date of Thrive Assessment Date Thrive assessed 04/24/25 04/24/25 16:35 Currently or been in a relationship where the following occur: I choose not to answer Const General: alert; No acute distress Eyes Conjunctivae: conjunctivae normal Resp Auscultation: clear to auscultation bilaterally Cardio Rate: regular rate Rhythm: regular rhythm GI Inspection: Yes normal to inspection Extrem General: Yes normal to inspection and No edema Coding Level of Care Code Est Pt Level 4 (34059) Diagnoses Type 2 diabetes mellitus with hyperglycemia, without long-term current use of insulin E11.65 Diabetes mellitus terminal superintendent insulin use: without terminal superintendent use Essential hypertension I10 Hypertension type: essential hypertension Hypercholesterolemia E78.00 Acquired hypothyroidism E03.9 Hypothyroidism type: acquired KENDRICK (generalized anxiety disorder) F41.1 Gastroesophageal reflux disease without esophagitis K21.9 Esophagitis presence: without esophagitis LFT elevation R79.89 Tubular adenoma of colon D12.6 BPH (benign prostatic hyperplasia) N40.0 Obstructive sleep apnea G47.33 Additional Codes KENDRICK-7 Assessment Billing - KENDRICK-7 Assessment Tool: KENDRICK-7 Assessment 98722 ([id number]) PHQ-9 - 81664 - PHQ-9 Billing: Yes ([id number]) Assessment & Plan Assessment & Plan (1) Type 2 diabetes mellitus with hyperglycemia: Comment: Dr. Lloyd Code(s): E11.65 - Type 2 diabetes mellitus with hyperglycemia Category: Medical Qualifiers: Diabetes mellitus terminal superintendent insulin use: without intermediate use Qualified Code(s): E11.65 - Type 2 diabetes mellitus with hyperglycemia Plan: Decrease the amount of carbohydrate intake, pasta, bread, rice and potatoes are all sugar and that is aside from all the sweet stuff, remember that fruits are good but they are Sweet also. Hemoglobin A1c goal of less than 7.0. Patient on metformin a 1000 mg twice a day Ozempic 1 mg once a week (2) Hypertension: Code(s): I10 - Essential (primary) hypertension Category: Medical Qualifiers: Hypertension type: essential hypertension Qualified Code(s): I10 - Essential (primary) hypertension Plan: Continue with blood pressure medication. Decrease salt intake and exercise patient on lisinopril 20 mg once a day (3) Hypercholesterolemia: Code(s): E78.00 - Pure hypercholesterolemia, unspecified Category: Medical Plan: Avoid fried foods, chicken skin, eggs, butter margarine, pastries and meat. Be it pork or beef they have a lot of cholesterol LDL goal of less than 100 and triglyceride of less than 150 on simvastatin 40 mg once a day (4) Hypothyroidism: Code(s): E03.9 - Hypothyroidism, unspecified Category: Medical Qualifiers: Hypothyroidism type: acquired Qualified Code(s): E03.9 - Hypothyroidism, unspecified Plan: Continue with thyroid medication (5) KENDRICK (generalized anxiety disorder): Code(s): F41.1 - Generalized anxiety disorder Category: Medical Plan: Continue with diazepam as needed Wellbutrin (6) GERD (gastroesophageal reflux disease): Code(s): K21.9 - Gastro-esophageal reflux disease without esophagitis Category: Medical Qualifiers: Esophagitis presence: without esophagitis Qualified Code(s): K21.9 - Gastro-esophageal reflux disease without esophagitis Plan: Avoid the foods that causes that usually spicy foods, tomato products, juices, coffee, soda and foods that your sensitive to. After eating do not lie down, allow 3-4 hours before in lie down. And keep the head of bed above 30 degrees to avoid the acid from going up. (7) LFT elevation: Code(s): R79.89 - Other specified abnormal findings of blood chemistry Category: Medical Plan: Discussed repeat blood work as well as ultrasound of the abdomen (8) Tubular adenoma of colon: Code(s): D12.6 - Benign neoplasm of colon, unspecified Category: Medical Plan: Patient is reminded about colonoscopy (9) BPH (benign prostatic hyperplasia): Comment: May 2023 63 cc Code(s): N40.0 - Benign prostatic hyperplasia without lower urinary tract symptoms Category: Medical Plan: On tamsulosin 0.4 mg once a day (10) Obstructive sleep apnea: Comment: 01/2019 Code(s): G47.33 - Obstructive sleep apnea (adult) (pediatric) Category: Medical Plan: Discussed about CPAP. Use the CPAP more than 4 hours a night and benefits from this Plan History of Present Illness The patient is a 75-year-old male presenting for a routine follow-up and management of chronic conditions. The patient has a history of hypertension, managed with lisinopril 20 mg daily. His blood pressure management plan was discussed, and he is advised to continue his current medication regimen. The patient has diabetes mellitus, with a recent hemoglobin A1c of 6.3, indicating good control. He is currently on metformin 1000 mg twice daily and Ozempic 1 mg weekly, with a goal to maintain A1c below 7.0. The patient has experienced a 7-pound weight loss, and his medication dose was discussed for potential adjustment due to weight stagnation. The patient has hypothyroidism, which is stable with current medication. The patient has a history of gastroesophageal reflux disease, managed with lifestyle modifications and medication. The patient has anxiety disorder, managed with diazepam as needed and Wel lbutrin. The patient has obstructive sleep apnea and uses CPAP therapy for more than 4 hours nightly, which he finds beneficial. The patient has benign prostatic hyperplasia, managed with tamsulosin 0.4 mg daily. He reports nocturia every two hours, indicating the need for a urology referral. The patient has hypercholesterolemia, managed with simvastatin 40 mg daily. His LDL cholesterol is well-controlled at 66 mg/dL, but triglycerides are slightly elevated at 157 mg/dL. The patient has a history of tubular adenoma of the colon, with the last colonoscopy in September 2021, and is due for another screening. The patient has chronic anemia, stable over the past four to five years, with hemoglobin levels around 13.4 to 13.5 g/dL. His recent blood work showed normal platelet count, white blood cell count, and electrolytes, with stable renal function. Health Maintenance - Colonoscopy due for screening of tubular adenoma of the colon. - Blood work and abdominal ultrasound scheduled to monitor liver function and triglyceride levels. - CPAP therapy for obstructive sleep apnea, used more than 4 hours nightly. - Regular exercise and healthy diet discussed for weight management and donaldo sterol control. Social History - Exercise: Patient engages in regular physical activity, including bicycling and playing football. - Nutrition: Patient is focused on healthy eating habits. - Weight Management: Patient has experienced a 7-pound weight loss and is managing weight through lifestyle changes. Review of Systems - Cardiovascular: Denies chest pain or palpitations. - Respiratory: Reports using CPAP for obstructive sleep apnea, denies dyspnea. - Gastrointestinal: Denies abdominal pain, reports stable GERD symptoms. - Genitourinary: Reports nocturia every two hours. - Neurological: Denies headaches or dizziness. Physical Exam Results - Labs: Hemoglobin A1c 6.3%, triglycerides 157 mg/dL, LDL cholesterol 66 mg/dL, liver function test elevated at 49 U/L. - Tests: Abdominal ultrasound scheduled to assess liver function. Plan The management plan for the patient's diabetes includes maintaining a hemoglobin A1c goal of less than 7.0, with current medications including metformin and Ozempic. Given the patient's weight stagnation, an increase in Ozempic dosage was discussed to further aid in weight loss and glycemic control. For hypertension, the patient is to continue lisinopril 20 mg daily, with regular monitoring of blood pressure. The patient's hypercholesterolemia is managed with simvastatin, aiming for LDL cholesterol less than 100 mg/dL and triglycerides less than 150 mg/dL. Lifestyle modifications, including diet and exercise, were emphasized to improve cholesterol levels. A referral to urology was made due to nocturia and potential issues with benign prostatic hyperplasia. The patient is scheduled for a repeat blood work and abdominal ultrasound to monitor liver function and triglyceride levels. Preventative care includes scheduling a colonoscopy for screening of tubular adenoma of the colon. Patient was informed and verbally consented to the use of an ambient scribe for clinic note documentation during this visit. Discussion Notes During the visit, I discussed with the patient the importance of maintaining a hemoglobin A1c below 7.0 and the potential need to adjust Ozempic dosage due to weight stagnation. We reviewed the patient's blood pressure management with lisinopril and emphasized the role of lifestyle changes in managing hypercholesterolemia. I also explained the need for a urology referral due to nocturia and the importance of upcoming blood work and abdominal ultrasound to monitor liver function. Preventative care measures, including the scheduling of a colonoscopy, were also discussed. Patient Instructions - Continue taking metformin and Ozempic as prescribed. Monitor blood sugar levels regularly. - Maintain a healthy diet and exercise regularly to support weight loss and cholesterol management. - Follow up with urology as scheduled for nocturia evaluation. - Complete scheduled blood work and abdominal ultrasound to monitor liver function. - Schedule and attend a colonoscopy for colon health screening. Orders: Referrals Urology Referral N40.0 - Benign prostatic hyperplasia without lower urinary tract symptoms Medications: Changed From semaglutide (Ozempic) 1 mg (0.75 mL) subcut QWEEK 3 mL 4RF E11.65 - Type 2 diabetes mellitus with hyperglycemia To semaglutide 2 mg (0.75 mL) subcut QWEEK 3.75 mL 4RF 30 days E11.65 - Type 2 diabetes mellitus with hyperglycemia Refilled diazepam 2 mg PO BEDTIME PRN 20 tabs 1RF sleep 30 days N40.0 - Benign prostatic hyperplasia without lower urinary tract symptoms
--- OUTSIDE RECORDS SUMMARY | 2025-04-24 16:32 | XMS_ITS | Clinical Summary ---
Author Organization [facility] Address [address] [place] [address] Care Team Providers Care Wastewater Treatment Operator Name Role Phone Pcp, No Primary Care Provider Unavailabl e Allergies No known active allergies Medications OMEprazole (PriLOSEC) 10 MG capsule Take 10 mg by mouth daily. Active Social History Tobacco Use Types Packs/Day Years Used Date Smoking Tobacco: Never Alcohol Use Standard Drinks/Week Comments No 0 (1 standard drink = 0.6 oz pur e alcohol) Sex and Gender Information Value Date Recorded Sex Assigned at Not on file Legal Sex Male 11:21 AM EST Gender Identity Not on file Sexual Orientation Not on file Last Filed Vital Signs Vital Sign Reading Time Taken Comments Blood Pressure 110/70 04/08/2017 11:03 AM EDT IR REGULAR Pulse 84 04/08/2017 11:03 AM EDT Temperature 36.8 C (98.3 F) 04/08/2017 11:03 AM EDT Respiratory Rate 12 04/08/2017 11:03 AM EDT [...] Zoster (Shingles) Vaccine (1 of 2) 02/02/2002 COVID-19 Vaccine ( - 2023-2 5 season) 2024 Influenza Vaccine 05/05/2025 RSV Vaccine 60 years and old er and Patients (1 - 1-dose 75+ series) 02/02/2027 Hepatitis B Vaccines Aged Out No long er eligible based on patient's age to complete this topic Insurance TRAVELERS Care Teams Wastewater Treatment Operator Relationship Specialty Start Date End Date Pcp, No PCP - General General Medicine 09/08/16
--- OUTSIDE RECORDS SUMMARY | 2025-04-24 16:32 | XMS_ITS | Patient Health Record ---
Author Organization [facility] Address [address] [place] [address] Care Team Providers Care Tobacco Cutter Name Role Phone Adrian Ceja MD Primary Care Provider Edison Del Rosario [phone] Allergies No Known Allergies Reason For Referral [...] Notes: Nonsmoker; no sig alcohol. Originally from [facility] Problems Problem Type SNOMED Code ICD Code Onset Dates Problem Status W/U Status Risk Notes Problem 446364053 Encounter for screening for malignant neoplasm of colon (Z12.11) Active confirmed Problem 717188355 History of adenomatous polyp of colon (Z86.010) Active confirmed Problem Gastroesophageal reflux disease (K21.9) Active confirmed Problem Diverticulosis of colon (568377374) Diverticulosis of colon (K57.30) Active confirmed Problem 090716625 Gastroesophageal reflux disease, unspecified whether esophagitis present (K21.9) Active confirmed Plan Of Treatment Future Test Test Name Order Date UPPER GI ENDOSCOPY 08/16/2021 COLONOSCOPY 08/16/2021 Next Appt Details Provider Name:Edison Gillis , 04/26/2025 04:00:00 PM, [address] [place] [address], [address], [place], [address], Insurance Providers Payer Name Payer Address Payer Phone Subscriber Number Group Number Insured Name Patient Relationship to Insured Coverage Start Date Coverage End Date [employer] [address] [address] [place] [address] [id number] BREANNA SNYDER Self - patient is the insured Medical (General) History Medical History History ICD Code NIDDM Hypothyroidism Hypertension Hypercholesterolemia Hyperparathyroidism Vitamin D deficiency GERD Diabetic neuropathy Denies [place],DM,CVA,Lung disease,renal dise ase Surgical History Surgery Date(Month/Year) Ankle surgery Parathyroidectomy Skin grafts from [place]
== END 2025-04-24 17:24 | disposition home or self-care (01) ==
LOC: HO.HMCH 16:30
PROVIDERS: PCP Internal Medicine; Visit Provider Internal Medicine
DX: E11.65 Type 2 diabetes mellitus with hyperglycemia (principal); I10 Essential (primary) hypertension; E78.00 Pure hypercholesterolemia, unspecified; E03.9 Hypothyroidism, unspecified; F41.1 Generalized anxiety disorder; K21.9 Gastro-esophageal reflux disease without esophagitis; R79.89 Other specified abnormal findings of blood chemistry; D12.6 Benign neoplasm of colon, unspecified; N40.0 Benign prostatic hyperplasia without lower urinary tract symptoms; G47.33 Obstructive sleep apnea (adult) (pediatric)

== ENCOUNTER → 2025-04-24 16:30 | Outpatient (BNVA) | payer OTHER, SELFPAY | PROVIDERS: PCP Internal Medicine; Visit Provider Internal Medicine | DX: E11.65 Type 2 diabetes mellitus with hyperglycemia (principal); I10 Essential (primary) hypertension; E78.00 Pure hypercholesterolemia, unspecified; E03.9 Hypothyroidism, unspecified; F41.1 Generalized anxiety disorder; K21.9 Gastro-esophageal reflux disease without esophagitis; R79.89 Other specified abnormal findings of blood chemistry; N40.0 Benign prostatic hyperplasia without lower urinary tract symptoms; G47.33 Obstructive sleep apnea (adult) (pediatric); Z79.84 Long term (current) use of oral hypoglycemic drugs; Z79.85 Long-term (current) use of injectable non-insulin antidiabetic drugs; Z79.899 Other long term (current) drug therapy; Z13.39 Encounter for screening examination for other mental health and behavioral disorders; Z13.30 Encounter for screening examination for mental health and behavioral disorders, unspecified | CPT/HCPCS: 96127 ==

== ENCOUNTER 2025-04-28 07:39 | Outpatient (REF) | payer OTHER, SELFPAY ==
--- NOTE | ~2025-04-28 | US_ITS ---
CLINICAL HISTORY: R79.89 - Other specified abnormal findings of blood chemistry US abdomen complete Comparison: None provided Findings: The visualized pancreas is normal. The aorta and inferior vena cava are normal caliber. The appearance of the liver suggests fatty infiltration. There is no intrahepatic bile duct dilatation. The common duct is 3 mm in diameter. The gallbladder is normal. There is no sonographic De La Paz sign. The main portal vein is antegrade. The right kidney is 11.5 cm in length. The left kidney is 13.2 cm in length. The spleen is normal. No ascites. IMPRESSION: 1. Hepatic steatosis This document has been electronically signed by: Jason Irizarry MD on 04/28/2025 08:53:13
--- OUTSIDE RECORDS SUMMARY | 2025-04-28 07:42 | XMS_ITS | Clinical Summary ---
Author Organization [facility] Address [address] [place] [address] Care Team Providers Care Reimbursement Auditor Name Role Phone Pcp, No Primary Care [...] complete this topic Insurance TRAVELERS Care Teams Reimbursement Auditor Relationship Specialty Start Date End Date Pcp, No PCP - General General Medicine 09/08/16
--- OUTSIDE RECORDS SUMMARY | 2025-04-28 07:42 | XMS_ITS | Patient Health Record ---
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 Name Role Phone Adrian Ceja MD Primary Care Provider Edison Del Rosario [phone] Allergies No Known Allergies Reason For Referral No Information Medications Medication SIG (Take, Route, Frequency, Duration) Notes Start Date End Date Status Levothyroxine Sodium 50 MCG Oral for 90 Active Simvastatin 40 MG Oral for 30 Active Tamsulosin HCl 0.4 MG 1 capsule Orally O nce a day 04/26/2025 Active Ozempic (2 MG/DOSE) 8 MG/3ML as directed Subcutaneous Act noe Pantoprazole Sodium 40 MG Oral for 90 Active Lisinopril 40 MG TAKE ONE TABLET BY M OUTH EVERY DAY Orally Once a day Active metFORMIN HCl ER 500 MG TAKE TWO TABLETS BY MOUTH TWICE A DAY Oral bid Active Immunizations Vaccine Route Administration Date Status Comme nts Influenza Unknown 07/26/2024 Administered Influenza Unknown 08/16/2021 Refused Social History Tobacco Use: Social History Observation Description Date Details (start date - stop date) Never Smoker NA - NA Tobacco Use/Smoking Question Answer Notes Patient is a nonsmoker Alcohol Screen Question Answer Notes Did you have a drink containing alcohol in the p ast year? No Points 0 Interpretation Negative Section Notes: Nonsmoker; no sig alcohol. Originally from [facility] Nonsmoker; no sig alcohol. Originally from [facility] Problems Problem Type SNOMED Code ICD Code Onset Dates Problem Status W/U Status Risk Notes Problem Colon cancer screening (Z12.11) Active confirmed Problem 058932961 Encounter for screening for malignant neoplasm of colon (Z12.11) Active confirmed Problem 653441804 History of adenomatous polyp of colon (Z86.010) Active confirmed Problem Gastroesophageal reflux disease (K21.9) Active confirmed Problem Tubulovillous adenoma of colon (7847776555) Tubulovillous adenoma of colon (K63.5) Active confirmed Problem Gastroesophageal reflux disease (529375533) GERD (gastroesophageal reflux disease) (K21.9) Active confirmed Problem Diverticulosis of colon (274541154) Diverticulosis of colon (K57.30) Active confirmed Problem 838957152 Gastroesophageal reflux disease, unspecified whether esophagitis present (K21.9) Active confirmed Vital Signs Temperature 97.5 degrees Fahrenheit 04/26/2025 Blood pressure diastolic 01 mm Hg 04/26/2025 Height 71 in 04/26/2025 Blood pressure systolic 001 mm Hg 04/26/2025 Weight 215.4 lbs 04/26/2025 BMI 30.04 kg/m2 04/26/2025 Procedures Procedure Date Ordered Date Performed Result Body Sit e COLONOSCOPY 04/26/2025 N/A Encounters Encounter Location Date Provider Diagnosis [facility] [address] [place] [address] 04/26/2025 Edison Gillis Tubulovillous adenom a of colon K63.5 ; Colon cancer screening Z12.11 ; GERD (gastroesophageal reflux disease) K21.9 and History of adenomatous polyp of colon Z86.010 Assessments Encounter Date Diagnosis (ICD Code) Assessment Notes Treatment Notes Treatment Clinical Notes Section Notes 04/26/2025 Colon cancer screening (ICD-10 - Z12.11) Overall, Clarence appears quite well. He is not having any new or worrisome GI complaints. His reflux remains well-controlled on his pantoprazole and I did advise him to continue that. We did review the findings on his 2020 upper endoscopy. Based on those findings and his stable clinical appearance, I do not think a repeat upper endoscopy is required. I did recommend a follow-up colonoscopy for further screening given his history of the flat villous adenoma removed from the ascending colon nearly 4 years ago. We did review the rationale for this in regard to colon cancer prevention. Full consent has been obtained for this, including risks of bleeding and perforation. The procedure will be done with monitored anesthesia care. He was given the below instructions regarding adjustment of his medications for the procedure. Clarence and his were comfortable with this plan. Thank you again for allowing me to participate in Siobhans care. I shall continue to keep you advised of his progress. 04/26/2025 Tubulovillous adenoma of colon (ICD-10 - K63.5) Overall, Clarence appears quite well. He is not having any new or worrisome GI complaints. His reflux remains well-controlled on his pantoprazole and I did advise him to continue that. We did review the findings on his 2020 upper endoscopy. Based on those findings and his stable clinical appearance, I do not think a repeat upper endoscopy is required. I did recommend a follow-up colonoscopy for further screening given his history of the flat villous adenoma removed from the ascending colon nearly 4 years ago. We did review the rationale for this in regard to colon cancer prevention. Full consent has been obtained for this, including risks of bleeding and perforation. The procedure will be done with monitored anesthesia care. He was given the below instructions regarding adjustment of his medications for the procedure. Clarence and his were comfortable with this plan. Thank you again for allowing me to participate in Clarence's care. I shall continue to keep you advised of his progress. 04/26/2025 GERD (gastroesophageal reflux disease) (ICD-10 - K21.9) Continue the Protonix(Pant oprazole) for the reflux Overall, Clarence appears quite well. He is not having any new or worrisome GI complaints. His reflux remains well-controlled on his pantoprazole and I did advise him to continue that. We did review the findings on his 2020 upper endoscopy. Based on those findings and his stable clinical appearance, I do not think a repeat upper endoscopy is required. I did recommend a follow-up colonoscopy for further screening given his history of the flat villous adenoma removed from the ascending colon nearly 4 years ago. We did review the rationale for this in regard to colon cancer prevention. Full consent has been obtained for this, including risks of bleeding and perforation. The procedure will be done with monitored anesthesia care. He was given the below instructions regarding adjustment of his medications for the procedure. Clarence and his were comfortable with this plan. Thank you again for allowing me to participate in Siobhans care. I shall continue to keep you advised of his progress. 04/26/2025 History of adenomatous polyp of colon (ICD-10 - Z86.010) Overall, Clarence appears quite well. He is not having any new or worrisome GI complaints. His reflux remains well-controlled on his pantoprazole and I did advise him to continue that. We did review the findings on his 2020 upper endoscopy. Based on those findings and his stable clinical appearance, I do not think a repeat upper endoscopy is required. I did recommend a follow-up colonoscopy for further screening given his history of the flat villous adenoma removed from the ascending colon nearly 4 years ago. We did review the rationale for this in regard to colon cancer prevention. Full consent has been obtained for this, including risks of bleeding and perforation. The procedure will be done with monitored anesthesia care. He was given the below instructions regarding adjustment of his medications for the procedure. Clarence and his were comfortable with this plan. Thank you again for allowing me to participate in Clarence's care. I shall continue to keep you advised of his progress. Plan Of Treatment Pending Test Test Name Order Date COLONOSCOPY 04/26/2025 Future Test Test Name Order Date UPPER GI ENDOSCOPY 08/16/2021 COLONOSCOPY 08/16/2021 Next Appt Details Provider Name:Edison Gillis , 08/18/2025 07:30:00 AM, [address] [place] [address] , [place], [place], [id number], Insurance Providers Payer Name Payer Address Payer Phone Subscriber Number Group Number Insured Name Patient Relationship to Insured Coverage Start Date Coverage End Date BLUE ROUND[employer] S OF [employer] [address] [address] [place] [address] [id number] CLARENCE SNYDER Self - patient is the insured Medical (General) History Medical History History ICD Code NIDDM Hypothyroidism Hypertension Hypercholesterolemia Hyperparathyroidism Diabetic neuropathy Denies CA,DM,CVA,Lung disease,renal dise ase Screening colonoscopy in 2006 revealed 2 tubular adenomas that were removed GERD-Upper endoscopy in mb2020 revealed a small hiatal hernia, but no evidence of any esophagitis nor Chino's esophagus Colonoscopy in September 2021 revealed a flat tubulovillous adenoma removed from the ascending colon Surgical History Surgery Date(Month/Year) Skin grafts from [facility] in [place] Parathyroidectomy Ankle surgery
== END 2025-04-28 07:40 | disposition home or self-care (01) ==
LOC: HO.US 07:39
PROVIDERS: PCP Internal Medicine; Visit Provider Internal Medicine
DX: R79.89 Other specified abnormal findings of blood chemistry (principal)
CPT/HCPCS: 76700

== ENCOUNTER → 2025-04-28 07:42 | Outpatient (BNV) | payer OTHER, SELFPAY | PROVIDERS: PCP Internal Medicine; Visit Provider Specialist | DX: K76.0 Fatty (change of) liver, not elsewhere classified (principal) | CPT/HCPCS: 76700 ==

== ENCOUNTER 2025-07-11 10:54 | Outpatient (AMB) | payer OTHER, SELFPAY ==
--- NOTE | 2025-07-11 10:57 | MHC.OFFVIS ---
Intake Visit Reasons: BPH Intake Note: Patient is present for BPH Urology Medication:TADALAFIL,TAMSULOSIN Antibiotic Allergy:NONE Blood Thinner:NONE TODAY'S PVR:2ML'S Spray Machine Operator Required: No Allergies latex Allergy (Verified 07/11/25 11:28) skin irritation, from CPAP mask Medication List - Last Reconciled 07/11/25 by VANDANA Cruz alclometasone 0.05% 1 appl topical BID PRN 7 days blood sugar diagnostic (FreeStyle Lite Strips) As directed check the BS QD blood-glucose meter (FreeStyle Lite Meter kit) As directed bupropion HCl XL (Wellbutrin XL) 150 mg PO QAM clotrimazole 1% 1 appl topical BID 4 weeks diazepam 2 mg PO BEDTIME PRN 30 days lancets (FreeStyle Lancets) As directed check BS QD lisinopril 20 mg PO DAILY 30 days metformin ER 1,000 mg (2 x 500 mg) PO BID pantoprazole (Protonix) 40 mg PO DAILY semaglutide 2 mg (0.75 mL) subcut QWEEK 30 days simvastatin 40 mg PO BEDTIME 90 days tadalafil 5 mg PO DAILY tamsulosin 0.4 mg PO BEDTIME HPI Comments Details: Clarence is a very pleasant 75-year-old male patient of Dr. Ceja. He has a PMH of eczema, urinary frequency, GERD, hypothyroidism, vitamin-D deficiency, diabetic neuropathy associated with type 2 diabetes, hypertension, and diabetes. He presents to the office today for follow-up. Of note, patient was last seen approximately 2 years at which time recommendations were made for a 6 week follow-up however this was never achieved. In discussion with the patient today he reports having followed up with his PCP in discussing his ongoing issues of nocturia at which time recommendations were made for urology referral. Previous workup has included a bladder ultrasound 01/25 that noted well distended and normal bladder. Bilateral ureteral jets are not demonstrated. Pre void bladder volume is approximately 200 mL. Postvoid bladder volume is approximately 5 mL. The prostate is enlarged measuring approximately 63 mL. He reports episodes of nocturia greater than 3 times per night. When asked he does report a history of sleep apnea however is noncompliant with CPAP machine. We did discussed correlation of sleep apnea and nocturia. Unable to obtain urine for urinalysis today however PVR 2 mL. He discusses at length his reluctancy in taking medications. He is currently on Flomax and low-dose tadalafil however discusses he is not always compliant with his medications. We did discuss correlation of diabetes with lower urinary tract symptoms. In review of patient's chart it appears A1c is are as follows: A1c: 07/23 6.1, 12/23 6.8, 03/25 6.8, 04/25 6.9, 03/29 6.3 PSAs are as follows: PSAs: 05/27 1.6 ZEUS was offered however deferred. All questions were answered. We discussed at length potential causes of lower urinary tract symptoms patient is experiencing as well as further treatment options and risks and benefits of these treatment options. He otherwise offers no other issues or concerns at this time. [facility] Medical History LFT elevation Frequency of micturition Headache Localized osteoarthritis of left knee Internal derangement of left knee Eczema Diastasis recti Anserine bursitis Painful arc syndrome of right shoulder Right shoulder pain Impacted cerumen of both ears Burn Obesity (BMI 30-39.9) Overweight (BMI 25.0-29.9) GERD (gastroesophageal reflux disease) Hypothyroidism Vitamin D deficiency Diabetic neuropathy associated with type 2 diabetes mellitus Hypertension History of hyperparathyroidism Surgical History Hx of umbilical hernia repair Hx of skin graft Hx of colonoscopy History of parathyroidectomy History of ankle surgery Family History Father No problems noted. 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 Cognitive needs: No Hearing needs: No Vision needs: No Review of Systems Const Reports as per HPI Eyes Reports no additional complaints ENT Reports no additional complaints Card Reports as per HPI Resp Reports no additional complaints GI Reports no additional complaints Reports as per HPI Musc Reports as per [facility] Skin/Breast Reports as per HPI Neuro Reports no additional complaints Psych Reports no additional complaints Endo Reports as per HPI Wiley/Lymph Reports no additional complaints Aller/Immun Reports no additional complaints Physical Exam Const General: cooperative, healthy appearing, comfortable, no acute distress, well developed, alert and awake Orientation/consciousness: patient oriented x3 Limitations: no limitations HEENT Head: Yes normal to inspection, Yes normocephalic and Yes atraumatic Ears: hearing grossly normal bilaterally Eyes General: appearance normal, both eyes and all related structures Neck Neck: Yes normal visual inspection and Yes trachea midline Chest Chest palpation & inspection: normal inspection of the chest Resp Effort & Inspection: normal respiratory effort and able to speak in complete sentences Cardio Rate: regular rate GI Inspection: Yes normal to inspection General: Yes no CVA tenderness Back/Spine/Pelvis Back: no CVA tenderness Skin General skin exam: no rashes or lesions noted Neuro General: patient oriented x3 Extrem General: Yes normal to inspection Psych Appearance: grossly normal and well kempt Mental Status: mental status grossly normal Speech and movement: Normal speech and movement present and Clear speech present Affect: normal affect Attitude: cooperative Thought process: Normal thought process present Thought content: Normal thought content present Insight: Good insight present (Psych) Judgement: Good judgement present (Psych) Office Procedures Post Void Residual Post Residual Void Post Void Residual (PVR): 2 12013-Bjma Void Residual by ultrasound Assessment & Plan Assessment & Plan (1) Nocturia: Code(s): R35.1 - Nocturia Category: Medical (2) BPH (benign prostatic hyperplasia): Comment: May 2023 63 cc Code(s): N40.0 - Benign prostatic hyperplasia without lower urinary tract symptoms Category: Medical (3) Enlarged prostate: Code(s): N40.0 - Benign prostatic hyperplasia without lower urinary tract symptoms Category: Medical (4) Frequency of micturition: Code(s): R35.0 - Frequency of micturition Category: Medical Plan Unable to obtain urine for urinalysis today as patient unable to void however PVR 2 mL. We did discussed at length potential causes of nocturia as well as further treatment options and risks and benefits of these treatment options. We did discuss importance of compliance in CPAP machine for sleep apnea in correlation to nocturia. Stop Flomax. Start alfuzosin. Continue tadalafil. ZEUS was offered however deferred. Will obtain PSA. We did discuss importance of limiting fluids 2-3 hours prior to bed to decrease episodes of nocturia. Follow-up in 1-3 months with PSA and PVR; or sooner with any issues, concerns, and or questions. Orders: Orders AMB Urinalysis Automated Today Z13.9 - Encounter for screening, unspecified Prostate Specific Antigen Today N40.0 - Benign prostatic hyperplasia without lower urinary tract symptoms Medications: New alfuzosin ER Take before bedtime 10 mg PO BEDTIME 30 tabs 3RF 30 days N32.0 - Bladder-neck obstruction, N40.1 - Benign prostatic hyperplasia with lower urinary tract symptoms, R33.9 - Retention of urine, unspecified, R35.1 - Nocturia, R39.12 - Poor urinary stream Discontinued tamsulosin Discontinued Reason: Doctor's Order 0.4 mg PO BEDTIME 90 caps 2RF N40.0 - Benign prostatic hyperplasia without lower urinary tract symptoms Patient Instructions: The patient had an opportunity to ask questions regarding the treatment plan. All questions were answered. Physical exam, labs, and imaging were discussed and reviewed in detail. As well as risks, benefits, and discussion of treatment choices. No major barriers to understanding were identified. The patient expressed understanding and agreement with the above treatment plan. The patient was made aware they should contact our office by phone for worsening of their current condition, the appearance of new symptoms, or with any questions or concerns. Compliance is encouraged with any medications and follow up testing that is ordered. It is a privilege to be allowed the opportunity to participate in? your urological care.? Again, if you have any questions or concerns If you have any questions or concerns please do not hesitate to contact me. The office is [phone]. This note is constructed using voice recognition software. While every effort has been made to ensure accuracy supervisor pipe finishing errors may have been included. Yours sincerely, VANDANA Cruz Coding Level of Care Code Est Pt Level 4 (23059) Complex EM visit Add On G2211 Diagnoses Nocturia R35.1 BPH (benign prostatic hyperplasia) N40.0 Enlarged prostate N40.0 Frequency of micturition R35.0 CPT Codes Post Residual Void - PVR CPT Code: 75545-Onja Void Residual by ultrasound ([id number])
--- OUTSIDE RECORDS SUMMARY | 2025-07-11 13:27 | XMS_ITS | Patient Health Record ---
Author Organization [facility] Address [address] [place] [address] Care Team Providers Care Hand Sander Name Role Phone Adrian Ceja MD Primary Care Provider Edison Del Rosario [phone] Allergies No Known Allergies Reason For Referral [...] Notes: Nonsmoker; no sig alcohol. Originally from [facility] Nonsmoker; no sig alcohol. Originally from [facility] Problems Problem Type SNOMED Code ICD Code Onset Dates Problem Status W/U Status Risk Notes Problem Colon cancer screening (427779894) Colon cancer screening (Z12.11) Active confirmed Problem 878478375 Encounter for screening for malignant neoplasm of colon (Z12.11) Active confirmed Problem 780072583 History of adenomatous polyp of colon (Z86.010) Active confirmed Problem Gastroesophageal reflux disease (422905427) Gastroesophageal reflux disease (K21.9) Active confirmed Problem Tubulovillous adenoma of colon (6730348068) Tubulovillous adenoma of colon (K63.5) Active confirmed Problem Gastroesophageal reflux disease (101038232) GERD (gastroesophageal reflux disease) (K21.9) Active confirmed Problem Diverticulosis of colon (805714620) Diverticulosis of colon (K57.30) Active confirmed Problem 041534641 Gastroesophageal reflux disease, unspecified whether esophagitis present (K21.9) Active confirmed Vital Signs Temperature 97.5 degrees Fahrenheit 04/26/2025 Blood pressure diastolic 01 mm Hg 04/26/2025 Height 71 in 04/26/2025 Blood pressure systolic 001 mm Hg 04/26/2025 Weight 215.4 lbs 04/26/2025 BMI 30.04 kg/m2 04/26/2025 Procedures Procedure Date Ordered Date Performed Result Body Sit e COLONOSCOPY 04/26/2025 N/A Encounters Encounter Location Date Provider Diagnosis [facility] [address] [place] [address] 04/26/2025 Edison Gillis Tubulovillous adenom a of colon K63.5 ; GERD (gastroesophageal reflux disease) K21.9 ; Colon cancer screening Z12.11 and History of adenomatous polyp of colon Z86.010 Assessments Encounter Date Diagnosis (ICD Code) Assessment Notes Treatment Notes Treatment Clinical Notes Section Notes 04/26/2025 Tubulovillous adenoma of colon (ICD-10 - [...] keep you advised of his progress. 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 [address] [address] [place] [address] [id number] CLARENCE SNYDER Self - patient is the insured Medical (General) History Medical History History ICD Code NIDDM Hypothyroidism Hypertension Hypercholesterolemia Hyperparathyroidism Diabetic neuropathy Denies [place],DM,CVA,Lung disease,renal dise ase Screening colonoscopy in 2006 revealed 2 tubular adenomas that were removed GERD-Upper endoscopy in 2020 revealed a small hiatal hernia, but no evidence of any esophagitis nor Chino's esophagus Colonoscopy in September 2021 revealed a flat tubulovillous adenoma removed from the ascending colon Surgical History Surgery Date(Month/Year) Skin grafts from [place] in [place] Parathyroidectomy Ankle surgery
--- OUTSIDE RECORDS SUMMARY | 2025-07-11 13:27 | XMS_ITS | Clinical Summary ---
Author Organization [facility] Address [address] [place] [address] Care Team Providers Care Semiconductor Packages Tester Name Role Phone Pcp, No Primary Care [...] Health Maintenance Due Date Last Done Comments Advance Care Planning 1950 Hepatitis C Virus Screening 1950 DTaP/Tdap/Td Vaccines (1 - Tdap) 02/02/1971 Colonoscopy 02/02/1997 Pneumococcal Vaccines 50+ (1 of 1 - PCV) 02/02/2002 Zoster (Shingles) Vaccine (1 of 2) 02/02/2002 Influenza Vaccine 05/05/2025 COVID-19 Vaccine (2023-2 5 season) 2025 RSV Vaccine 60 years and old er and Patients (1 - 1-dose 75+ series) 02/02/2027 Hepatitis B Vaccines Aged Out No long er eligible based on patient's age to complete this topic Insurance TRAVELERS Care Teams Semiconductor Packages Tester Relationship Specialty Start Date End Date Pcp, No PCP - General General Medicine 09/08/16
== END 2025-07-11 11:29 | disposition home or self-care (01) ==
LOC: HO.HUSH 10:55
PROVIDERS: PCP Internal Medicine; Visit Provider Nurse Practitioner Family
DX: R35.1 Nocturia (principal); N40.0 Benign prostatic hyperplasia without lower urinary tract symptoms; R35.0 Frequency of micturition
CPT/HCPCS: 99214

== ENCOUNTER → 2025-07-11 10:54 | Outpatient (BNVA) | payer OTHER, SELFPAY | PROVIDERS: PCP Internal Medicine; Visit Provider Nurse Practitioner Family | DX: N40.0 Benign prostatic hyperplasia without lower urinary tract symptoms (principal); R35.1 Nocturia; R35.0 Frequency of micturition; Z13.9 Encounter for screening, unspecified | CPT/HCPCS: 51798 ==

== ENCOUNTER 2025-08-14 15:13 | Outpatient (AMB) | payer OTHER, SELFPAY ==
[2025-08-14 15:40] VITALS: BP 118/78; PULSE 81; O2SAT 95; BMI 29.2
--- NOTE | 2025-08-14 15:40 | A.OFFPC_ITS ---
Vital Signs 08/14/25 15:40 Height 6 ft Weight 215 lb BMI 29.2 BP 118/78 Blood Pressure Location Lt brachial Position Sitting Pulse 81 Pulse Source Pulse Oximeter Pulse Oximetry (%) 95 Oxygen Delivery Method Room Air Intake Visit Reasons: DM Allergies latex Allergy (Verified 08/14/25 15:40) skin irritation, from CPAP mask Medication List - Last Reconciled 08/14/25 by Adrian Ceja MD alclometasone 0.05% 1 appl topical BID PRN 7 days alfuzosin ER 10 mg PO BEDTIME 30 days blood sugar diagnostic (FreeStyle Lite Strips) As directed check the BS QD blood-glucose meter (FreeStyle Lite Meter kit) As directed bupropion HCl XL (Wellbutrin XL) 150 mg PO QAM clotrimazole 1% 1 appl topical BID 4 weeks diazepam 2 mg PO BEDTIME PRN 30 days lancets (FreeStyle Lancets) As directed check BS QD lisinopril 20 mg PO DAILY 30 days metformin ER 1,000 mg (2 x 500 mg) PO BID pantoprazole (Protonix) 40 mg PO DAILY semaglutide 1 mg (0.75 mL) subcut QWEEK 30 days simvastatin 40 mg PO BEDTIME 90 days tadalafil 5 mg PO DAILY Tobacco use date assessed: 04/24/25 Fall risk assessment: No Falls in past year Last assessed Fall Risk: 08/14/25 Dental Screening Dental Screen Date: 04/24/25 [facility] Medical History LFT elevation Frequency of micturition Headache Localized osteoarthritis of left knee Internal derangement of left knee Eczema Diastasis recti Anserine bursitis Painful arc syndrome of right shoulder Right shoulder pain Impacted cerumen of both ears Burn Obesity (BMI 30-39.9) Overweight (BMI 25.0-29.9) GERD (gastroesophageal reflux disease) Hypothyroidism Vitamin D deficiency Diabetic neuropathy associated with type 2 diabetes mellitus Hypertension History of hyperparathyroidism Surgical History Hx of umbilical hernia repair Hx of skin graft Hx of colonoscopy History of parathyroidectomy History of ankle surgery Family History (Updated 07/19/25 @ 09:30 by MARTIN Garcia) Father No problems noted. Mother No problems noted. 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 1. Little interest or pleasure in doing things: nearly every day 2. Feeling down, depressed, or hopeless: nearly every day 3. Trouble falling or staying asleep, or sleeping too much: several days 4. Feeling tired or having little energy: nearly every day 5. Poor appetite or overeating: not at all 6. Feeling bad about yourself - or that you are a failure or have let yourself or your family down: not at all 7. Trouble concentrating on things, such as reading the newspaper or watching television: more than half the days 8. Moving or speaking so slowly that other people could have noticed. Or the opposite - being so fidgety or restless that you have been moving around a lot more than usual: not at all 9. Thoughts that you would be better off or of hurting yourself in some way: not at all Total score: 12 Depression Screening Interpretation: Positive Depression Screening Done: Yes Source: Developed by Drs. Edison Scott, Radha Quach, Richard Renteria and colleagues, with an educational lidya from [employer]. Thrive Questionnaire Date Thrive assessed: 08/14/25 I am a: Patient What is your living situation today?: I choose not to answer this question Within the past 12 months, did the food you bought not last and you didn't have the money to get more?: I choose not to answer this question Within the past 12 months, did you worry whether your food would run out before you got money to buy more?: Never true Do you have trouble paying for medicines?: I choose not to answer this question Do you have trouble getting transportation to medical appointments?: I choose not to answer this question Do you have trouble paying your heating and electricity bill?: I choose not to answer this question Do you have trouble taking care of your child, family member or friend?: I choose not to answer this question Do you have trouble with day-to-day activities such as bathing, preparing meals, shopping, managing finances, etc.?: I choose not to answer this question Are you currently unemployed and looking for a job?: I choose not to answer this question Are you interested in more education?: I choose not to answer this question Please select the resources that you would like help with: None Currently or been in a relationship where the following occur: I choose not to answer THRIVE Score: 0 AUDIT C Alcohol Use Questionnaire (AUDIT-C) 1. How often do you have a drink containing alcohol?: Never 3. How often do you have six or more drinks on one occasion?: Never Total Score: 0 KENDRICK-7 AMB Questionnaire KENDRICK-7 Date KENDRICK - 7 assessed: 04/24/25 Source: Developed by Drs. Edison Scott, Radha Quach, Richard Renteria and colleagues, with an educational lidya from [employer]. Physical exam (Primary Care) Vital Signs: Last Vital Signs Pulse 81 08/14/25 15:40 BP 118/78 08/14/25 15:40 Pulse Ox 95 08/14/25 15:40 Oxygen Delivery Method Room Air 08/14/25 15:40 BMI result Body Mass Index 29.2 Tobacco/Smoking Status: Tobacco use Status Tobacco use date assessed 04/24/25 08/14/25 15:41 Patient Tobacco Use Status Never used Tobacco 08/14/25 15:41 Tobacco use type Cigarette 08/14/25 15:41 e-Cigarette/Vaping Use Never Used 08/14/25 15:41 PHQ-9: PHQ-9 Score PHQ-9: Total score 12 08/14/25 15:53 Depression Screening Interpretation: Positive Thrive Assessment: Date of Thrive Assessment Date Thrive assessed 08/14/25 08/14/25 15:41 Currently or been in a relationship where the following occur: I choose not to answer Const General: alert; No acute distress Eyes Conjunctivae: conjunctivae normal Resp Auscultation: clear to auscultation bilaterally Cardio Rate: regular rate Rhythm: regular rhythm GI Inspection: Yes normal to inspection Extrem General: Yes normal to inspection and No edema Results AMB Hemoglobin A1c AMB Hemoglobin A1c 4.7 % Last Edit by Elin Willis CMA on 08/14/25 15 :53 Results Reviewed Results Reviewed: Laboratory Last Values Hgb A1c (Clinic) 4.7 % (4.0-6.0) 08/14/25 15:41 Coding Level of Care Code Est Pt Level 4 (56431) Complex EM visit Add On G2211 Diagnoses Type 2 diabetes mellitus with hyperglycemia, without long-term current use of insulin E11.65 Diabetes mellitus long-term insulin use: without local intermodal truck driver use Essential hypertension I10 Hypertension type: essential hypertension Hypercholesterolemia E78.00 Acquired hypothyroidism E03.9 Hypothyroidism type: acquired Gastroesophageal reflux disease without esophagitis K21.9 Esophagitis presence: without esophagitis Hepatic steatosis K76.0 KENDRICK (generalized anxiety disorder) F41.1 Tubular adenoma of colon D12.6 Assessment & Plan Assessment & Plan (1) Type 2 diabetes mellitus with hyperglycemia: Comment: Dr. Lloyd Code(s): E11.65 - Type 2 diabetes mellitus with hyperglycemia Category: Medical Qualifiers: Diabetes mellitus long-term insulin use: without local intermodal truck driver use Qualified Code(s): E11.65 - Type 2 diabetes mellitus with hyperglycemia Plan: Decrease the amount of carbohydrate intake, pasta, bread, rice and potatoes are all sugar and that is aside from all the sweet stuff, remember that fruits are good but they are Sweet also. Hemoglobin A1c goal of less than 6.5 patient is at goal with metformin a 1000 mg twice a day patient is on semaglutide 2 mg once a week (2) Hypertension: Code(s): I10 - Essential (primary) hypertension Category: Medical Qualifiers: Hypertension type: essential hypertension Qualified Code(s): I10 - Essential (primary) hypertension Plan: Continue with blood pressure medication. Decrease salt intake and exercise patient takes lisinopril 20 mg once a day (3) Hypercholesterolemia: Code(s): E78.00 - Pure hypercholesterolemia, unspecified Category: Medical Plan: Avoid fried foods, chicken skin, eggs, butter margarine, pastries and meat. Be it pork or beef they have a lot of cholesterol LDL goal of less than 100 and triglyceride of less than 150 patient on simvastatin 40 mg once a day (4) Hypothyroidism: Code(s): E03.9 - Hypothyroidism, unspecified Category: Medical Qualifiers: Hypothyroidism type: acquired Qualified Code(s): E03.9 - Hypothyroidism, unspecified Plan: Continue with thyroid medication (5) GERD (gastroesophageal reflux disease): Code(s): K21.9 - Gastro-esophageal reflux disease without esophagitis Category: Medical Qualifiers: Esophagitis presence: without esophagitis Qualified Code(s): K21.9 - Gastro-esophageal reflux disease without esophagitis Plan: Avoid the foods that causes that usually spicy foods, tomato products, juices, coffee, soda and foods that your sensitive to. After eating do not lie down, allow 3-4 hours before in lie down. And keep the head of bed above 30 degrees to avoid the acid from going up. (6) Hepatic steatosis: Comment: April 2025 Code(s): K76.0 - Fatty (change of) liver, not elsewhere classified Category: Medical Plan: Low-fat diet and exercise (7) KENDRICK (generalized anxiety disorder): Code(s): F41.1 - Generalized anxiety disorder Category: Medical Plan: Stable (8) Tubular adenoma of colon: Code(s): D12.6 - Benign neoplasm of colon, unspecified Category: Medical Plan: Patient has a scheduled colonoscopy in on the Plan History of Present Illness The patient is a 75-year-old male presenting for a follow-up visit for management of multiple chronic conditions. He has a history of type 2 diabetes, hypertension, hypercholesterolemia, hypothyroidism, GERD, obstructive sleep apnea, generalized anxiety disorder, and BPH. Regarding his diabetes, the patient's hemoglobin A1c has decreased from 6.3% in March to 4.7% currently. He is currently treated with metformin 1000 mg twice a day and semaglutide 2 mg once a week. He reports recent episodes of seeing shadows and losing his balance without any associated dizziness, but denies episodes of jitteriness or sweatiness. He notes a decreased appetite and sometimes misses meals because the medication makes him feel full. For BPH, the patient was seen by urology on July 11 and was switched from tamsulosin to alfuzosin 10 mg daily while continuing tadalafil. He reports that the new medication is working well, allowing him to have five to six hours of uninterrupted sleep, which he has not had in years. His history includes a tubular adenoma of the colon, with the last colonoscopy performed in 2020, and he is scheduled for a follow-up colonoscopy on August 18. An abdominal ultrasound on April 28 revealed hepatic steatosis, and his liver function tests were noted to be elevated on March 08. Health Maintenance The patient is scheduled for a screening colonoscopy on August 18. Immunizations are up to date, including shingles, tetanus, influenza, and pneumonia. Social History - Exercise: The patient reports being very active, walking 74,000 steps per week, equivalent to about 31 miles. - Nutrition: Reports decreased appetite and feeling full due to semaglutide, causing him to sometimes skip meals and having to force himself to eat. - Fluid Intake: Patient is conscious of his water intake, but acknowledges he may need to drink more, especially when he is active and feels thirsty. Review of Systems - Neurological: Reports episodes of losing his balance without associated dizziness, describing it as a disconnect . - HEENT: Reports seeing shadows recently. Denies ear pain, coughing, congestion, sore throat, or difficulty swallowing. - Constitutional: Denies fever, jitteriness, or sweatiness. - Genitourinary: Reports improvement in urinary frequency, now able to get 5 to 6 hours of uninterrupted sleep. Physical Exam - Vitals: Blood pressure is 118 systolic. - HEENT: Oropharynx is noted to be clean and good. There is no pain with auricular traction. Results - Labs (current): Hemoglobin A1c is 4.7%. - Labs (past - March 08): Hemoglobin A1c was 6.3%; liver function tests were elevated. - Labs (Cholesterol): LDL is 66. - Imaging (April 28): Abdominal ultrasound showed hepatic steatosis. Plan Patient was informed and verbally consented to the use of an ambient scribe for clinic note documentation during this visit. 1. Diabetes Mellitus, Type 2 The patient's hemoglobin A1c is 4.7%, which is below the goal of less than 6.5% and has dropped significantly from 6.3% in March. This, along with his symptoms of seeing shadows and loss of balance, raises concern for hypoglycemia, especially given he is on the maximum dose of semaglutide and sometimes misses meals due to decreased appetite. The plan is to reduce the semaglutide dose from 2 mg to 1 mg weekly to mitigate the risk of hypoglycemia, while continuing metformin 1000 mg twice daily. The patient was advised to ensure regular meal intake. Follow-up is scheduled in 3 months. 2. Hypertension Blood pressure is well-controlled with a reading of 118 systolic. Continue lisinopril 20 mg once daily. The patient was counseled on maintaining adequate hydration. 3. Hypercholesterolemia The patient's LDL is 66, which meets the goal of less than 100. Continue simvastatin 40 mg once a day. 4. Benign Prostatic Hyperplasia The patient reports significant improvement in urinary symptoms, including achieving 5-6 hours of uninterrupted sleep, since starting alfuzosin. Continue alfuzosin 10 mg once a day as prescribed by urology. 5. Hypothyroidism Continue current thyroid medication. 6. Gastroesophageal Reflux Disease (Gerd) Continue lifestyle modifications including a low-fat diet and exercise. Discussion Notes I discussed with the patient my concern that his hemoglobin A1c of 4.7% indicates his blood sugar may be too low, especially while on metformin and the maximum dose of semaglutide. I explained that his symptoms of seeing shadows and losing balance could be related to hypoglycemia, particularly as he is skipping meals due to decreased appetite from the medication. We decided to decrease his semaglutide dose from 2 mg to 1 mg weekly to mitigate these risks, while continuing metformin. I encouraged him to eat more regularly and stressed the importance of staying well-hydrated, given his high level of physical activity. I confirmed his upcoming colonoscopy and reviewed that his vaccination status is current. I instructed him on how to use the office's patient portal to communicate any changes or concerns. We agreed on a follow-up appointment in 3 months, but I advised him to contact me sooner if any issues arise. Patient Instructions - Decrease your semaglutide dose to 1 mg once a week. - Continue taking all your other medications as prescribed, including metformin for diabetes, lisinopril for blood pressure, and simvastatin for cholesterol. - Make sure to eat regular meals and do not skip eating, as this can cause your blood sugar to become too low. - Drink plenty of water throughout the day, about six 8-ounce glasses, especially because you are very active. - Proceed with your scheduled colonoscopy on August 18. - Ask the front end software engineer how to sign up for the patient portal so you can send messages about any changes in your health. - Schedule a follow-up appointment in 3 months, but contact us sooner if you have any problems. Orders: Orders AMB Hemoglobin A1c Today Z13.9 - Encounter for screening, unspecified Medications: Changed From semaglutide 2 mg (0.75 mL) subcut QWEEK 30 days 3.75 mL 4RF E11.65 - Type 2 diabetes mellitus with hyperglycemia To semaglutide 1 mg (0.75 mL) subcut QWEEK 3.75 mL 4RF 30 days E11.65 - Type 2 diabetes mellitus with hyperglycemia
== END 2025-08-14 16:20 | disposition home or self-care (01) ==
LOC: HO.HMCH 15:14
PROVIDERS: PCP Internal Medicine; Visit Provider Internal Medicine
DX: E11.65 Type 2 diabetes mellitus with hyperglycemia (principal); I10 Essential (primary) hypertension; E78.00 Pure hypercholesterolemia, unspecified; E03.9 Hypothyroidism, unspecified; K21.9 Gastro-esophageal reflux disease without esophagitis; K76.0 Fatty (change of) liver, not elsewhere classified; F41.1 Generalized anxiety disorder; D12.6 Benign neoplasm of colon, unspecified; Z13.9 Encounter for screening, unspecified

== ENCOUNTER → 2025-08-14 15:13 | Outpatient (BNVA) | payer OTHER, SELFPAY | PROVIDERS: PCP Internal Medicine; Visit Provider Internal Medicine | DX: E11.65 Type 2 diabetes mellitus with hyperglycemia (principal); I10 Essential (primary) hypertension; E78.00 Pure hypercholesterolemia, unspecified; E03.9 Hypothyroidism, unspecified; K21.9 Gastro-esophageal reflux disease without esophagitis; K76.0 Fatty (change of) liver, not elsewhere classified; F41.1 Generalized anxiety disorder; D12.6 Benign neoplasm of colon, unspecified | CPT/HCPCS: 83036; 96127 ==

== ENCOUNTER 2025-08-18 06:29 | Day surgery (SDC) | payer OTHER, SELFPAY ==
--- OUTSIDE RECORDS SUMMARY | 2025-07-25 16:22 | XMS_ITS | Clinical Summary ---
Author Organization [facility] Address [address] [place] [address] Care Team Providers Care Foam Rubber Curer Name Role Phone Pcp, No Primary Care [...] Vaccine (2023-2 5 season) 2025 RSV Vaccine 50 years and old er and Patients (1 - 1-dose 75+ series) 02/02/2027 Hepatitis B Vaccines Aged Out No long er eligible based on patient's age to complete this topic Insurance TRAVELERS Care Teams Foam Rubber Curer Relationship Specialty Start Date End Date Pcp, No PCP - General General Medicine 09/08/16
--- OUTSIDE RECORDS SUMMARY | 2025-07-25 16:22 | XMS_ITS | Patient Health Record ---
Author Organization [facility] Address [address] [place] [address] Care Team Providers Care Estate Planning Attorney Name Role Phone Adrian Ceja MD Primary Care Provider Edison Del Rosario [phone] Allergies No Known Allergies Reason For Referral No Information Medications Medication SIG (Take, Route, Frequency, Duration) Notes Start Date End Date Status Levothyroxine Sodium 50 MCG Oral; Duration: 90 Active Simvastatin 40 MG Oral; Duration: 30 Active Tamsulosin HCl 0.4 MG 1 capsule Orally O nce a day 04/26/2025 Active Ozempic (2 MG/DOSE) 8 MG/3ML as directed Subcutaneous Act noe Pantoprazole Sodium 40 MG Oral; Duration: 90 Active Lisinopril 40 MG TAKE ONE [...] no sig alcohol. Originally from [facility] Nonsmoker; no sig alcohol. Originally from [facility] Problems Problem Type SNOMED Code ICD Code Onset Dates Problem Status W/U Status Risk Notes Problem Colon cancer screening (256304505) Colon cancer screening (Z12.11) Active confirmed Problem Screening for malignant neoplasm of colon (803470245) Encounter for screening for malignant neoplasm of colon (Z12.11) Active confirmed Problem History of adenomatous polyp of colon (446785674) History of adenomatous polyp of colon (Z86.010) Active confirmed Problem Gastroesophageal reflux disease (492704408) Gastroesophageal reflux disease (K21.9) Active confirmed Problem Tubulovillous adenoma of colon (7025924476) Tubulovillous adenoma of colon (K63.5) Active confirmed Problem Gastroesophageal reflux disease (871336024) GERD (gastroesophageal reflux disease) (K21.9) Active confirmed Problem Diverticulosis of colon (801103317) Diverticulosis of colon (K57.30) Active confirmed Problem Gastroesophageal reflux disease (015776957) Gastroesophageal reflux disease, unspecified whether esophagitis present (K21.9) Active confirmed Vital Signs Temperature 97.5 degrees Fahrenheit 04/26/2025 Blood pressure diastolic 01 mm Hg 04/26/2025 Height 71 in 04/26/2025 Blood pressure systolic 001 mm Hg 04/26/2025 Weight 215.4 lbs 04/26/2025 BMI 30.04 kg/m2 04/26/2025 Procedures Procedure Date Ordered Date Performed Result Body Sit e COLONOSCOPY 04/26/2025 N/A Encounters Encounter Location Date Provider Diagnosis [facility] [address] [place] [address] 04/26/2025 Edison Gillis Tubulovillous adenom a of [...] Provider Name:Edison Gillis , 08/18/2025 07:30:00 AM, [address] [place] [address], [phone], Insurance Providers Payer Name Payer Address Payer Phone Subscriber Number Group Number Insured Name Patient Relationship to Insured Coverage Start Date Coverage End Date [employer] [address] [address] [place] [address] [id number] CLARENCE SNYDER Self - patient is the insured Medical (General) History Medical History History ICD Code NIDDM Hypothyroidism Hypertension Hypercholesterolemia Hyperparathyroidism Diabetic neuropathy Denies NE,DM,CVA,Lung disease,renal dise ase Screening colonoscopy in 2006 [...]
--- NOTE | 2025-08-15 14:03 | HO.ANESPROP2 ---
Documented by User: Tiffanie Coombs NP 08/15/25 14:05 HPI - Anesthesia Eval Consult details Narrative: 75 yr old male for colonoscopy Type 2 DM: well controlled DENILSON: unsure of CPAP status Anesthesia Pre-Procedure Meds Is the patient on any of the following meds?: GLP1/DPP4 PMFSH Active Problems Active Problems: All Active Problems Hepatic steatosis (Acute) Hypercholesterolemia (Acute) Nocturia (Acute) Enlarged prostate (Acute) Frequency of micturition (Acute) KENDRICK (generalized anxiety disorder) (Acute) Tinea pedis (Acute) Annual physical exam (Acute) BPH (benign prostatic hyperplasia) (Acute) Tubular adenoma of colon (Acute) Diabetic neuropathy (Acute) Tinnitus (Acute) Type 2 diabetes mellitus with hyperglycemia (Acute) Vitamin B 12 deficiency (Acute) Obstructive sleep apnea (Acute) Anxiety (Acute) GERD (gastroesophageal reflux disease) (Acute) Hypothyroidism (Acute) Vitamin D deficiency (Acute) Diabetic neuropathy associated with type 2 diabetes mellitus (Acute) Hypertension (Acute) Past Medical History Medical History Diabetes Sleep apnea LFT elevation Frequency of micturition Headache Localized osteoarthritis of left knee Internal derangement of left knee Eczema Diastasis recti Anserine bursitis Painful arc syndrome of right shoulder Right shoulder pain Impacted cerumen of both ears Burn Obesity (BMI 30-39.9) Overweight (BMI 25.0-29.9) GERD (gastroesophageal reflux disease) Hypothyroidism Vitamin D deficiency Diabetic neuropathy associated with type 2 diabetes mellitus Hypertension History of hyperparathyroidism Family History Family History Father No problems noted. Mother No problems noted. Family history of problems with anesthesia: No Surgical History Surgical History History of esophagogastroduodenoscopy (EGD) Hx of umbilical hernia repair Hx of skin graft Hx of colonoscopy History of parathyroidectomy History of ankle surgery History of Problems with Anesthesia: No Social History Social History Housing: House Are you a primary youth career specialist to a significant other at home: No Do you presently have visiting nurse or other home services: No Alcohol intake: never Patient Tobacco Use Status: Never used Tobacco Tobacco use type: Cigarette e-Cigarette/Vaping Use: Never Used Second Hand Smoke Exposure: No Are you DNR?: No Advance Directives: No Advance Directives Information Provided: Yes service: Yes Current occupational status: employed 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 Cognitive needs: No Hearing needs: No Vision needs: No Meds Allergies Allergy/AdvReac Type Severity Reaction Status Date / Time latex Allergy skin Verified 08/14/25 15:40 irritation, from CPAP mask Home Medications ?Medication ?Instructions ?Recorded ?Confirmed ?Last Taken ?Type levothyroxine 50 mcg tablet 50 mcg PO DAILY 08/17/25 08/18/25 Unknown History lisinopril 20 mg tablet 40 mg PO DAILY 08/17/25 08/18/25 Unknown History semaglutide 2 mg/dose (8 mg/3 mL) 2 mg subcut QWEEK 08/17/25 08/18/25 08/10/25 History subcutaneous pen injector (Ozempic) tamsulosin 0.4 mg capsule 0.4 mg PO BEDTIME 08/17/25 08/18/25 Unknown History alclometasone 0.05 % topical BID PRN Itching 08/18/25 08/18/25 Unknown History alfuzosin 10 mg tablet,extended 10 mg PO BEDTIME 08/18/25 08/18/25 Unknown History release 24 hr bupropion HCl 150 mg 24 hr tablet, 150 mg PO QAM 08/18/25 08/18/25 Unknown History extended release (Wellbutrin XL) clotrimazole 1 % topical cream 1 appl topical BID 08/18/25 08/18/25 Unknown History diazepam 2 mg tablet 2 mg PO BEDTIME PRN Sleep 08/18/25 08/18/25 Unknown History Assessment and Plan Final Anesthetic Review Family History of Problems with Anesthesia: No History of Problems with Anesthesia: No Documented by User: Sarah Cabral MD 08/18/25 08:03 [facility] Past Medical History Medical History Diabetes Sleep apnea LFT elevation Frequency of micturition Headache Localized osteoarthritis of left knee Internal derangement of left knee Eczema Diastasis recti Anserine bursitis Painful arc syndrome of right shoulder Right shoulder pain Impacted cerumen of both ears Burn Obesity (BMI 30-39.9) Overweight (BMI 25.0-29.9) GERD (gastroesophageal reflux disease) Hypothyroidism Vitamin D deficiency Diabetic neuropathy associated with type 2 diabetes mellitus Hypertension History of hyperparathyroidism Family History Family History Father No problems noted. Mother No problems noted. Surgical History Surgical History History of esophagogastroduodenoscopy (EGD) Hx of umbilical hernia repair Hx of skin graft Hx of colonoscopy History of parathyroidectomy History of ankle surgery Social History Social History Housing: House Are you a primary youth career specialist to a significant other at home: No Do you presently have visiting nurse or other home services: No Alcohol intake: never Patient Tobacco Use Status: Never used Tobacco Tobacco use type: Cigarette e-Cigarette/Vaping Use: Never Used Second Hand Smoke Exposure: No Are you DNR?: No Advance Directives: No Advance Directives Information Provided: Yes service: Yes Current occupational status: employed 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 Cognitive needs: No Hearing needs: No Vision needs: No Meds Allergies Allergy/AdvReac Type Severity Reaction Status Date / Time latex Allergy skin Verified 08/14/25 15:40 irritation, from CPAP mask Home Medications ?Medication ?Instructions ?Recorded ?Confirmed ?Last Taken ?Type levothyroxine 50 mcg tablet 50 mcg PO DAILY 08/17/25 08/18/25 Unknown History lisinopril 20 mg tablet 40 mg PO DAILY 08/17/25 08/18/25 Unknown History semaglutide 2 mg/dose (8 mg/3 mL) 2 mg subcut QWEEK 08/17/25 08/18/25 08/10/25 History subcutaneous pen injector (Ozempic) tamsulosin 0.4 mg capsule 0.4 mg PO BEDTIME 08/17/25 08/18/25 Unknown History alclometasone 0.05 % topical BID PRN Itching 08/18/25 08/18/25 Unknown History alfuzosin 10 mg tablet,extended 10 mg PO BEDTIME 08/18/25 08/18/25 Unknown History release 24 hr bupropion HCl 150 mg 24 hr tablet, 150 mg PO QAM 08/18/25 08/18/25 Unknown History extended release (Wellbutrin XL) clotrimazole 1 % topical cream 1 appl topical BID 08/18/25 08/18/25 Unknown History diazepam 2 mg tablet 2 mg PO BEDTIME PRN Sleep 08/18/25 08/18/25 Unknown History Exam Airway Mallampati Class: III TM Dist: >3cm Neck ROM: Full Loose/Missing/Broken Teeth: No Heart: RRR Lungs: CTA Assessment and Plan Assessment Anesthesia Assessment: Anesthesia Plan Discussed and Chart Reviewed Final Anesthetic Review NPO: Yes ASA Class: III Final Preanesthetic Review: Meds/Allgs Chart Reviewed, Consent Obtained/Reviewed and Anes Risks/Benef Reviewed Patient Risk: Intermediate Procedure Risk: Low Anesthetic Plan Anesthetic Plan: MAC: Disposition: Standard PACU
[2025-08-18 06:38] VITALS: BMI 29.7
[2025-08-18 06:53] VITALS: BP 149/74; PULSE 80; RESP 18; TEMP 36.3; O2SAT 96
[2025-08-18 07:09] LABS: Glucose, Whole Blood 117 mg/dL (60-115)
[2025-08-18] MEDS: Lactated Ringers 1,000 ML 100 ML IVCONT (07:25)
[2025-08-18 09:18] VITALS: BP 133/76; PULSE 73; RESP 18; TEMP 36.3; O2SAT 100
[2025-08-18 09:33] VITALS: BP 127/42; PULSE 69; RESP 14; O2SAT 98
[2025-08-18 09:40] VITALS: TEMP 36.6
--- NOTE | 2025-08-18 15:24 | PM.OP ---
Brief Operative Note Date of Service: 08/18/25 Pre-op diagnosis: Screening Post-op diagnosis: other (Polyps) Procedure: Colonoscopy to the cecum with hot snare polypectomies, biopsies, and marking with submucosal ink Surgeon: Edison Gillis MD Anesthesia: MAC Was an Solar Project Coordination Specialist used for this Procedure?: No Estimated blood loss (mL): 2.0 Pathology: other (A. Ascending colon polyp B. Distal ascending colon C. Transverse colon polyp) Condition: stable Disposition: PACU
--- NOTE | 2025-08-21 09:09 | OP_ITS ---
DATE OF SERVICE: 08/18/2025 SURGEON: Edison Gillis MD INDICATIONS: The patient presents for evaluation of personal history of colon polyps and need for colorectal cancer screening. Full consent has been obtained from him for this, including risks of bleeding and perforation. PREOPERATIVE DIAGNOSIS: POSTOPERATIVE DIAGNOSIS: Personal history of colon polyps, including a tubulovillous adenoma, and need for colorectal cancer screening, colon polyps, diverticulosis, and internal hemorrhoids. PROCEDURE PERFORMED: Colonoscopy to the cecum with hot snare polypectomies, biopsies, and marking with submucosal ink. ESTIMATED BLOOD LOSS: COMPLICATIONS: ANESTHESIA: Medication use, monitored anesthesia care. ASSISTANTS: SPECIMENS: PREOPERATIVE DIAGNOSES: Personal history of colon polyps, including a tubulovillous adenoma, and need for colorectal cancer screening. DESCRIPTION OF PROCEDURE: The patient was placed in the left lateral decubitus position. The digital rectal exam revealed no abnormalities. The Olympus video pediatric colonoscope was entered into the rectum and advanced easily to the cecum. Once in the cecum, I did identify normal-appearing cecal pouch with appendiceal orifice and a normal-appearing ileocecal valve. The entire cecum including the appendiceal orifice was well visualized and appeared normal. The scope was then slowly withdrawn assessing all mucosal surfaces carefully. Preparation was excellent. In what appeared to be the proximal to mid ascending colon, there was an approximately 12 mm polypoid lesion in between folds. This was removed by hot snare polypectomy and then recovered by suction. The polypectomy site appeared clean, without any sign of residual polyp nor bleeding. Distal to this and what appeared to be the distal ascending colon and/or area of the hepatic flexure, there was a polypoid lesion in between the folds. It was a difficult spot to try to visualize well due to some colonic spasm, the size of the polyp, and the location. Overall, this involved approximately 1/4 to 1/3 the circumference of the bowel lumen. It appeared to be grossly adenomatous. It was a relatively narrow lesion on a fold. I spent a long time trying to get a good look at the lesion, but given its location in between folds and either the distal ascending colon and/or the hepatic flexure, it made it difficult to get a good look at the area and also difficult to attempt removal. I did snare a small piece off the corner of the lesion and recovered that by suction. At that point, given the appearance of the lesion and the location, which also made it difficult to be able to get a good look at and snare, I opted just to obtain multiple biopsies from it at this point. I did place a submucosal ink tavia just proximal and immediately distal to the lesion. The lesion itself was quite firm when biopsied. It was minimally friable. Again, it encompassed approximately 1/4 to 1/3 of the circumference of the bowel lumen. In the transverse colon, there was a relatively flat approximately 1 cm lesion that was removed by hot snare polypectomy and recovered by suction. The polypectomy site appeared clean, without any sign of residual polyp nor bleeding. I did not visualize any other polyps, colitis, nor angiodysplasia. There was a mild amount of sigmoid diverticulosis. In the rectum, the scope was retroflexed visualizing the distal rectum carefully. There were some internal hemorrhoids, but no other pathology. The rectal mucosa appeared normal. The scope was straightened and withdrawn from the patient. He tolerated the procedure well and was returned to the recovery area in stable condition. IMPRESSION: 1. Colon polyps with hot snare polypectomies and biopsies. The polyp in the region of the distal ascending colon and/or hepatic flexure was not able to be removed in its entirety at this time and was basically just biopsied multiple times. 2. Diverticulosis. 3. Internal hemorrhoids. PLAN: The results of biopsies will be checked. If the pathology of the polyp in the area of the distal ascending colon and/or hepatic flexure shows anything worrisome such as carcinoma, then he would clearly need surgery for that. On the other hand, if it just shows it to be adenomatous or villous adenomatous, then I would recommend referral for a 2nd attempt at a colonoscopy to remove the lesion. He was advised not to use any aspirin and NSAIDs for at least 1 week. Further plans regarding the treatment of the polyp will be made once I have these biopsies back. This has all been discussed in detail with the patient and his today. MD LEONID Gleason/ALIRIO / [id number]
== END 2025-08-18 10:13 | disposition home or self-care (01) ==
PROVIDERS: PCP Internal Medicine; Visit Provider Internal Medicine
PROC: 0DJD8ZZ Inspection of Lower Intestinal Tract, Via Natural or Artificial Opening Endoscopic (ICD-10-PCS; CPT 45378; principal; 2025-08-18 07:30)
DX: Z12.11 Encounter for screening for malignant neoplasm of colon (principal); Z86.0101 Personal history of adenomatous and serrated colon polyps; D12.2 Benign neoplasm of ascending colon; D12.3 Benign neoplasm of transverse colon; K57.30 Diverticulosis of large intestine without perforation or abscess without bleeding; K64.8 Other hemorrhoids; K21.9 Gastro-esophageal reflux disease without esophagitis; I10 Essential (primary) hypertension; E78.00 Pure hypercholesterolemia, unspecified; E03.9 Hypothyroidism, unspecified; E21.3 Hyperparathyroidism, unspecified; E11.40 Type 2 diabetes mellitus with diabetic neuropathy, unspecified; Z79.84 Long term (current) use of oral hypoglycemic drugs; Z79.85 Long-term (current) use of injectable non-insulin antidiabetic drugs; Z79.899 Other long term (current) drug therapy; Z98.890 Other specified postprocedural states
CPT/HCPCS: 45385; 45380; 45381; 82947; 88305; J2003; J2704

== ENCOUNTER 2025-09-21 06:33 | Outpatient (REF) | payer OTHER, SELFPAY ==
[2025-09-21 08:05] LABS: Prostate Specific Antigen 2.30 ng/mL (<0.05-4.0)
[2025-09-21 08:06] LABS: Alanine Aminotransferase 30 U/L (0-40); Albumin Level 4.5 g/dL (3.5-5.0); Aspartate Amino Transferase 23 U/L (5-37); Total Protein 7.0 g/dL (6.5-8.0)
[2025-09-21 08:11] LABS: Alkaline Phosphatase 60 U/L (39-117)
[2025-09-21 13:42] LABS: HBS Num1 73.97 mIU/mL (0-7.99); HBc Num1 0.07 S/CO (0.00-0.79); HBsAGNum1 0.31 S/CO (0.00-0.99); Hepatitis B Surface Antigen Negative (Negative); ~HepC Num1 0.09 S/CO (0.00-0.79); ~Hepatitis B Surface Antibody REACTIVE (Nonreactive); ~Hepatitis C Antibody Nonreactive (Nonreactive)
== END 2025-09-21 06:34 | disposition home or self-care (01) ==
LOC: HO.LAB 06:33
PROVIDERS: Nurse Practitioner Family; PCP Internal Medicine; Visit Provider Internal Medicine
DX: Z12.5 Encounter for screening for malignant neoplasm of prostate (principal); N40.0 Benign prostatic hyperplasia without lower urinary tract symptoms; R79.89 Other specified abnormal findings of blood chemistry
CPT/HCPCS: 36415; 80076; 84153; 86704; 86706; 86803; 87340